=== PATIENT | female | born 1935 | race Caucasian/White ===

== ENCOUNTER → 2020-12-30 13:43 | Outpatient (CLI) | payer MEDICARE, OTHER, SELFPAY ==
--- NOTE | ~2020-12-30 | MR_ITS ---
EXAMINATION: MR lumbar spine wo con DATE: 12/30/2020 14:42 INDICATION: Dorsalgia, unspecified. Low back pain and bilateral leg pain. TECHNIQUE: Magnetic resonance imaging (MRI) of the lumbar spine was performed without intravenous con trast. Sequences included sagittal T2-weighted FSE, sagittal T2-weighted FS FSE, sagittal T1-weighted FSE, and axial T2-weighted FSE. COMPARISON: None FINDINGS: Bone alignment is normal. Vertebral body heights and intervertebral disc heights are normal . The distal spinal cord signal intensity is normal. The conus medullaris is at T12-L1. The following disc levels are specifically discussed: L1-L2: The disc is bulging. There is mild bilateral facet joint osteoarthritis. There is mild left ne ural foraminal stenosis. There is mild central canal stenosis. L2-L3: The disc is mildly bulging. There is mild bilateral facet joint osteoarthritis. There is mild bilateral neural foraminal stenosis. There is no central canal stenosis. L3-L4: The disc is mildly bulging. There is moderate bilateral facet joint osteoarthritis. There is m ild bilateral neural foraminal stenosis. There is no central canal stenosis. L4-L5: The disc is bulging and has an annular fissure. There is severe bilateral facet joint osteoart hritis. There is mild bilateral neural foraminal stenosis. There is mild central canal stenosis. L5-S1: The disc is bulging. There is severe bilateral facet joint osteoarthritis. There is mild bilat eral neural foraminal stenosis. There is mild central canal stenosis. IMPRESSION: 1. Mild lumbar spondylosis. Reviewed, dictated and finalized at location A. IMPRESSION: 1. Mild lumbar spondylosis.
== END ==
PROVIDERS: PCP Internal Medicine; Visit Provider Nurse Practitioner Family
DX: M47.817 Spondylosis without myelopathy or radiculopathy, lumbosacral region (principal); M48.07 Spinal stenosis, lumbosacral region
CPT/HCPCS: 72148

== ENCOUNTER 2021-09-09 13:38 | Outpatient (CLI) | payer MEDICARE, OTHER, SELFPAY ==
--- NOTE | ~2021-09-09 | US_ITS ---
EXAMINATION: US art doppler w press LE BI DATE: 09/09/2021 15:19 INDICATION: Peripheral vascular disease TECHNIQUE: Segmental pressures and plethysmographic and Doppler waveforms of the brachial and lower e xtremity arteries were obtained. COMPARISON: None. FINDINGS: Right and left brachial artery pressures of 175 mm Hg and 138 mm Hg, respectively, are discordant (no rmal difference <= 30 mmHg). The right and left high-thigh pressure indices are unable to be obtained due to inability to occlude the vessels on either the left or right (normal > 1.2). The right ankle-brachial index (FELIPA) is 0.41 (normal >= 0.9-1). The right great toe-brachial index (T BI) is 0.14 (normal >= 0.6-0.8). No dopplerable pulse in the right dorsalis pedis artery. The right l ower extremity segmental pressure gradients are increased between the right mwzbi-cuk-nifx popliteal artery and the contralateral left ggzwt-vbb-bvaz popliteal artery (normal gradients <= 20-30 mmHg bet ween adjacent levels on the same leg or the same levels on the two legs). Arterial waveforms are biph asic with brisk systolic upstrokes at the remaining arteries of the right lower limb. The left FELIPA is 0.38. The left TBI is 0.14. The left lower extremity segmental pressure gradients are increased between the left above and avdju-pkx-mwgi popliteal arteries. Arterial waveforms are bipha sic throughout the arteries of the left lower limb with borderline delayed upstrokes at the left popl iteal and posterior tibial arteries. IMPRESSION: 1. 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 2. Discordant brachial artery pressures which could be due to either hemodynamically significant sten osis proximal to the left brachial artery or vessel wall calcification with artifactual increased pre ssures in the right brachial artery. Could consider CT angiogram of great vessels arising from the ao rtic arch. Reviewed, dictated and finalized at location A. IMPRESSION: 1. 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 2. Discordant brachial artery pressures which could be due to either hemodynami zoie significant stenosis proximal to the left brachial artery or vessel wall calcification with artifactual increased pressures in the right brachial artery . Could consider CT angiogram of great vessels arising from the aortic arch.
== END 2021-09-09 13:39 | disposition home or self-care (01) ==
LOC: ANHIMG 13:44
PROVIDERS: PCP Internal Medicine; Visit Provider Physician Assistant
DX: I73.9 Peripheral vascular disease, unspecified (principal)
CPT/HCPCS: 93923

== ENCOUNTER 2021-09-19 11:38 | Emergency (ER) | payer OTHER, MEDICARE, SELFPAY ==
--- NOTE | ~2021-09-19 | XR_ITS ---
EXAMINATION: XR chest 1V portable DATE: 09/19/2021 12:32 INDICATION: Left chest pain. TECHNIQUE: A single frontal view of the chest was obtained. COMPARISON: Chest 2 views 04/30/2017 FINDINGS: Calcified right lung nodules are consistent with old granulomatous disease. No pleural effu chuck or pneumothorax. The heart size is normal. IMPRESSION: 1. No acute cardiopulmonary disease. Reviewed, dictated and finalized at location A.
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
[2021-09-19 11:45] VITALS: BP 168/65; PULSE 104; RESP 20; TEMP 36.6; O2SAT 100
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
[2021-09-19 13:35] LABS: Basophils Percent Auto 0.4 % (0.2-1.2); Eosinophils Percent Auto 0.7 % (0-4.4); Hematocrit 28.9 % (37.0-47.0); Hemoglobin 9.8 g/dL (12.0-15.0); Immature Granulocyte Absolute 0.03 K/mm3 (0.00-0.031); Immature Granulocyte Percent A 0.7 % (0-0.5); Lymphocytes Absolute Auto 1.76 K/mm3 (0.9-3.2); Lymphocytes Percent Auto 38.4 % (18.3-44.2); Mean Corpuscular HGB Conc 33.9 g/dl (32-36); Mean Corpuscular Hemoglobin 43.4 pg (26-34); Mean Corpuscular Volume 127.9 fl (80-100); Mean Platelet Volume 10.6 fl (7.4-10.4); Monocytes Absolute Auto 0.4 K/mm3 (0.1-0.6); Monocytes Percent Auto 7.9 % (2.6-8.5); Neutrophils Absolute Auto 2.4 K/mm3 (1.3-6.7); Neutrophils Percent Auto 51.9 % (45.5-73.1); Platelet Count Result 203 k/mm3 (150-375); Red Blood Count 2.26 M/mm3 (4.2-5.4); Red Cell Distribution Width 20.6 % (11.5-14.5); White Blood Count 4.6 K/mm3 (4.5-10.0)
[2021-09-19 13:39] LABS: Alanine Aminotransferase 18 U/L (6-35); Albumin Level 4.7 g/dL (3.5-5.1); Alkaline Phosphatase 60 U/L (38-126); Anion Gap 8 mmol/L (8-16); Aspartate Amino Transferase 26 U/L (14-36); Bilirubin,Total 0.8 mg/dL (0.2-1.3); Blood Urea Nitrogen 18 mg/dL (7-17); Calcium 8.6 mg/dL (8.4-10.2); Carbon Dioxide 29 mmol/L (22-30); Chloride 100 mmol/L (98-107); Estimated CRCL calculation 32 ml/min; Estimated Glomerular Filt Rate 39; Glucose 110 mg/dL (65-110); Potassium 3.9 mmol/L (3.4-5.0); Sodium 137 mmol/L (137-145)
[2021-09-19 13:40] LABS: INR 1.2; Prothrombin Time 14.5 Seconds (11.1-14.7)
[2021-09-19 15:14] VITALS: BP 114/63; PULSE 94; RESP 16; TEMP 36.4; O2SAT 100
== END 2021-09-19 15:19 | disposition home or self-care (01) ==
PROVIDERS: Emergency Provider Emergency Medicine; PCP Internal Medicine
DX: S22.32XA Fracture of one rib, left side, initial encounter for closed fracture (principal); S20.212A Contusion of left front wall of thorax, initial encounter; E78.00 Pure hypercholesterolemia, unspecified; Z87.891 Personal history of nicotine dependence; V49.50XA Passenger injured in collision with unspecified motor vehicles in traffic accident, initial encounter
CPT/HCPCS: 36415; 71045; 71260; 74177; 80053; 85025; 85610; 85730; 99284; Q9967

== ENCOUNTER 2022-09-08 14:23 | Outpatient (CLI) | payer MEDICARE, OTHER, SELFPAY ==
--- NOTE | 2022-09-08 14:36 | ECG_ITS ---
Measurements Intervals [place] Rate: 82 P: 40 W[place]: 168 QRS: 31 QRSD: 65 T: 54 QT: 379 QTc: 445 Interpretive Statements SINUS RHYTHM WITH FREQUENT VENTRICULAR PREMATURE COMPLEXES ABNORMAL RHYTHM ECG NO PREVIOUS ECG AVAILABLE FOR COMPARISON Electronically Signed On 09-08-2022 17:21:35 CDT by Margarito Fenton M.D.
== END 2022-09-08 14:24 | disposition home or self-care (01) ==
LOC: ANHCARD 14:30
PROVIDERS: PCP Internal Medicine; Visit Provider Physician Assistant
DX: I49.9 Cardiac arrhythmia, unspecified (principal); R94.31 Abnormal electrocardiogram [ECG] [EKG]
CPT/HCPCS: 93005

== ENCOUNTER 2023-02-20 09:41 | Day surgery (SDC) | payer MEDICARE, OTHER, SELFPAY ==
--- NOTE | ~2023-02-20 | XR_ITS ---
EXAMINATION: XR fluoroscopy no charge INDICATION: Bilateral L3, L4, and L5 medial block TECHNIQUE: 20 intraoperative fluoroscopic images are submitted for review. Total fluoroscopic time wa s 22.8 seconds. COMPARISON: None available FINDINGS: Fluoroscopic images demonstrate bilateral injection of L3, L4, and L5 neuroforamina. Please refer to procedure note for full details. IMPRESSION: 1. Please refer to procedure note for full details. Reviewed, dictated and finalized at location L. KET FOLDER
--- NOTE | 2023-02-20 05:49 | WPDHPUPDATE1 ---
History and Physical Update Update Date/Time: 02/20/23 05:49 History and Physical has been reviewed, including an updated exam of the patient. There are NO changes in the patient's condition. Risks, benefits, and alternatives have been discussed and questions answered. Patient agrees to proceed with procedure.
[2023-02-20 10:25] VITALS: BP 150/82; PULSE 90; RESP 20; TEMP 36.8; O2SAT 100
[2023-02-20 11:35] VITALS: BP 236/112; PULSE 66; RESP 14; O2SAT 99
[2023-02-20 11:40] VITALS: PULSE 75; RESP 10; O2SAT 99
[2023-02-20] MEDS: LIDOCAINE HCL 1% PF INJ 5 ML VIAL 3 ML XX (11:40)
[2023-02-20] MEDS: BUPivacaine HCL 0.5% 10 ML AMP INFILTRATE (11:43)
--- NOTE | 2023-02-20 11:45 | W.PM.PROC2 ---
Procedure Note - Detailed Date of Procedure 02/20/23 Pre-op Diagnosis Lumbosacral Spondylosis, chronic low back pain Post-op Diagnosis Same Procedure Performed bilateral L3, L4, L5 medial branch/dorsal ramus blocks addressing the bilateral L4-5, L5-S1 facet joints under fluoroscopic guidance with contrast control. Surgeon Viktor Dover MD Anesthesia Local Description of Procedure INFORMED CONSENT: Risks, benefits and alternatives to the procedure were discussed in detail with the patient who expressed explicit understanding and consent to proceed. Patient was informed verbally and in written form regarding the risks associated with the procedure including the low risk of serious infection, bleeding/bruising, allergic reaction, nerve or organ injury, paralysis, procedural site pain or discomfort, worsening pain and/or mobility, failure to treat and/or disfigurement. The patient expressed explicit understanding and consent to proceed. All materials required for the procedure were available prior to procedure start. Site and side were marked prior to procedure and confirmed in the presence of the patient. PROCEDURE IN DETAIL: The patient was brought to the procedural suite and placed in the prone position. Patient was made comfortable with use of pillows under the head/chest, hips and ankles. Skin overlying the injection site on the affected side(s) was prepared broadly with ChloraPrep applicator and draped in a sterile manner. Aseptic technique was used throughout. The endplates of the vertebral bodies at the site(s) of interest were aligned in the AP view. Ipsilateral oblique angulation was utilized to optimize visualization of the intersection between the superior articulating process and transverse process at each target site. Local anesthesia was established by infiltration with approximately 5 mL of 1% lidocaine via a 1-1/2 inch 27-gauge needle. A 25-gauge 5.0 inch Quincke spinal needle was advanced until the needle tip contacted periosteum at the target site, right L3. Lateral view was utilized to confirm the appropriate placement of the needle tip just anterior to the facet line and superior to the pedicle. In the Lateral view, 0.25 mL of Omnipaque 300 contrast medium was injected after negative aspiration for CSF, blood or other bodily fluid, showing appropriate extra-articular spread of contrast without evidence of intravascular, foraminal or intrathecal placement. A 0.5 mL solution of 0.5% PF bupivacaine was injected after negative repeat aspiration. Appropriate spread of the injectate was confirmed with washout of previously injected contrast. No parasthesias were elicited. Needle was removed completely intact without difficulty. [The same exact procedure was repeated for all remaining levels on the ipsilateral side, right L4, L5 medial branches/dorsal ramus, modified as necessary to accommodate for the new target location with identical findings and results and no evidence of complication.] [The same exact procedure was repeated for all remaining levels on the contralateral side, left L3, L4, L5 medial branches/dorsal ramus, modified as necessary to accommodate for the new target location with identical findings and results and no evidence of complication.] Images were saved and documented in the patient chart. Patient's skin was cleaned and sterile bandage applied. The patient tolerated the procedure well. The patient was transported to the recovery area in stable condition where they were observed for an appropriate amount of time prior to discharge, without evidence of complication. Patient was instructed on the appropriate completion of a pain diary over the next 12-24 hours. The patient was instructed to avoid excessive activity for the next 48 hours, including climbing and frequent use of stairs. Showers only for 48 hours. They were instructed not to drive or operate heavy machinery for 24 hours. They are to monitor for severe headaches, fe
[2023-02-20 12:15] VITALS: BP 167/82; PULSE 77; RESP 15; O2SAT 99
== END 2023-02-20 12:07 | disposition home or self-care (01) ==
LOC: ASC 09:44
PROVIDERS: PCP Internal Medicine; Visit Provider Anesthesiology Pain Medicine
PROC: (CPT 64493; principal; 2023-02-20 11:00)
DX: M47.817 Spondylosis without myelopathy or radiculopathy, lumbosacral region (principal); M54.59 Other low back pain
CPT/HCPCS: 64493 ×2; 99199

== ENCOUNTER 2023-04-03 08:45 | Day surgery (SDC) | payer MEDICARE, OTHER, SELFPAY ==
[2023-03-16 13:05] VITALS: BMI 32.3
--- NOTE | ~2023-04-03 | XR_ITS ---
EXAMINATION: XR fluoroscopy no charge DATE: 04/03/2023 11:01 INDICATION: Lumbar spondylosis. Dorsalgia. TECHNIQUE: 11 intraoperative fluoroscopic views of the lumbar spine were obtained. I was not present. Fluoroscopy exposure time was 15 seconds. COMPARISON: CT abdomen and pelvis 09/19/2021 FINDINGS: [place] and contrast are seen at the bilateral L3, L4, and L5 medial branch nerves. IMPRESSION: 1. Bilateral L3, L4, and L5 medial branch nerve blocks. Reviewed, dictated and finalized at location E. [facility] [employer]
[2023-04-03 09:10] VITALS: BP 133/70; PULSE 86; RESP 20; TEMP 36.2; O2SAT 99
--- NOTE | 2023-04-03 09:24 | PM.HPGS ---
History of Present Illness History of Present Illness Consent: Risks, benefits, and alternatives have been discussed and questions answered. Patient agrees to proceed with procedure. Chief complaint: Lumbar Sponydlosis, Dorsalgia Narrative: Kayla Tierney is a 88 year old female with chronic, recalcitrant and disabling bilateral lumbosacral back pain secondary to degenerative spondylosis with failure to respond to aggressive conservative measures including PT, oral and topical analgesics, opioid and nonopioid analgesics, rest, time and activity/behavioral modification over the past 1-2 years who presents for diagnostic/prognostic medial branch blocks (#2) under fluoroscopic guidance and with contrast control. patient had excellent And concordant response to a initial set of bilateral lumbar medial branch/ dorsal ramus blocks with bupivacaine in the past 1-2 months. Review of Systems Review of Systems: Patient denies any new infectious, allergic, cardiopulmonary, neurologic or constitutional symptoms or changes in activity tolerance or exercise capacity including new or progressive SOB/FORDE, peripheral edema, productive cough, dysuria, nausea/vomiting, diarrhea, weight change, fevers/chills/night sweats, new or progressive neurologic deficit, cognitive or mood changes since last seen, except as documented in the HPI. All systems reviewed & are unremarkable except as noted in HPI and below PMFSH Past Medical History Medical History Hypercholesterolemia Family History Family History Sibling Family history of elevated blood lipids Carcinoma of colon Patient's sister is Social History Social History Smoking status: Former smoker Second hand tobacco smoke exposure: No Smoking end date: 03/12/04 Additional smoking assessment comments: quit 30 years ago Alcohol intake: never Substance use: unknown Substance use type: does not use Lack of Transportation: No Lack of Food: Never True Current Housing: I Have Housing Concerned About Future Housing: No Difficulty Paying Gas/Electric Bills: No Difficulty Paying for Meds: No Currently Unemployed: YES Education: High School Diploma/GED Difficulty w/ Childcare or Family Care: No Living arrangements: with family Spiritual care concerns: No Meds Home Medications and Allergies Home Medications Medication Instructions Recorded Confirmed Type hydroxyurea 500 mg capsule 1,000 mg PO DAILY #216 caps 06/28/20 03/16/23 Rx levothyroxine 88 mcg tablet See Rx Instructions .Route 05/22/22 03/16/23 Rx .COMPLEX #90 tabs rosuvastatin 10 mg tablet See Rx Instructions .Route 07/10/22 03/16/23 Rx .COMPLEX #90 tabs sertraline 100 mg tablet See Rx Instructions .Route 08/14/22 03/16/23 Rx .COMPLEX #90 tabs aspirin 81 mg tablet,delayed 81 mg PO DAILY 09/25/22 03/16/23 History release (Adult Aspirin Regimen) clopidogrel 75 mg tablet (Plavix) 75 mg PO DAILY 09/25/22 03/16/23 History Allergies Allergy/AdvReac Type Severity Reaction Status Date / Time No Known Allergies Allergy Verified 04/03/23 09:26 Exam Narrative: The patient's physical exam is essentially unchanged from prior examination on 02/26/2023. Specifically, patient demonstrates normal lung capacity, tidal volume and respiratory rate without wheezes, crackles, rales or rubs. Heart rate and rhythm are regular without murmurs, gallops or rubs. No JVD. Pulses 2+ globally without increasing peripheral edema. AAOx3, NC/AT without acute distress or altered consciousness. Speech, cognition, mood and judgment at baseline and within normal limits. Assessment and Plan Assessment and plan (1) Lumbosacral spondylosis: Code(s): M47.817 - Spondylosis without myelopathy or radiculopathy, lumbos
--- NOTE | 2023-04-03 09:28 | WPDHPUPDATE1 ---
History and Physical Update Update Date/Time: 04/03/23 09:28 History and Physical has been reviewed, including an updated exam of the patient. There are NO changes in the patient's condition. Risks, benefits, and alternatives have been discussed and questions answered. Patient agrees to proceed with procedure.
[2023-04-03 10:00] VITALS: BP 164/79; PULSE 80; RESP 17; O2SAT 98
[2023-04-03 10:10] VITALS: BP 171/83; PULSE 75; RESP 16; O2SAT 99
[2023-04-03] MEDS: LIDOCAINE HCL 1% PF INJ 5 ML VIAL XX (10:16)
[2023-04-03] MEDS: LIDOCAINE HCL 2% PF INJ 5 ML VIAL INFILTRATE (10:17)
--- NOTE | 2023-04-03 10:17 | W.PM.PROC2 ---
Procedure Note - Detailed Date of Procedure 04/03/23 Pre-op Diagnosis Lumbar Sponydlosis, Dorsalgia Post-op Diagnosis Same Procedure Performed bilateral L3, L4, L5 medial branch/dorsal ramus nerve blocks (#2) addressing the bilateral L4-5, L5-S1 facet joints under fluoroscopic guidance and contrast control. Surgeon Viktor Dover MD Anesthesia Local Description of Procedure INFORMED CONSENT: Risks, benefits and alternatives to the procedure were discussed in detail with the patient who expressed explicit understanding and consent to proceed. Patient was informed verbally and in written form regarding the risks associated with the procedure including the low risk of serious infection, bleeding/bruising, allergic reaction, nerve or organ injury, paralysis, procedural site pain or discomfort, worsening pain and/or mobility, failure to treat and/or disfigurement. The patient expressed explicit understanding and consent to proceed. All materials required for the procedure were available prior to procedure start. Site and side were marked prior to procedure and confirmed in the presence of the patient. PROCEDURE IN DETAIL: The patient was brought to the procedural suite and placed in the prone position. Patient was made comfortable with use of pillows under the head/chest, hips and ankles. Skin overlying the injection site on the affected side(s) was prepared broadly with ChloraPrep applicator and draped in a sterile manner. Aseptic technique was used throughout. The endplates of the vertebral bodies at the site(s) of interest were aligned in the AP view. Ipsilateral oblique angulation was utilized to optimize visualization of the intersection between the superior articulating process and transverse process at each target site. Local anesthesia was established by infiltration with approximately 5 mL of 1% lidocaine via a 1-1/2 inch 27-gauge needle. A 25-gauge 3.5 inch Quincke spinal needle was advanced until the needle tip contacted periosteum at the target site, right L3. Lateral view was utilized to confirm the appropriate placement of the needle tip just anterior to the facet line and superior to the pedicle. In the Lateral view, 0.25 mL of Omnipaque 300 contrast medium was injected after negative aspiration for CSF, blood or other bodily fluid, showing appropriate extra-articular spread of contrast without evidence of intravascular, foraminal or intrathecal placement. A 0.5 mL solution of 2.0% preservative-free lidocaine was injected after negative repeat aspiration. Appropriate spread of the injectate was confirmed with washout of previously injected contrast. No parasthesias were elicited. Needle was removed completely intact without difficulty. The same exact procedure was repeated for all remaining levels on the ipsilateral side, right L4, L5 medial branches/dorsal ramus, modified as necessary to accommodate for the new target location with identical findings and results and no evidence of complication. The same exact procedure was repeated for all remaining levels on the contralateral side, left L3, L4, L5 medial branches/dorsal ramus, modified as necessary to accommodate for the new target location with identical findings and results and no evidence of complication. Images were saved and documented in the patient chart. Patient's skin was cleaned and sterile bandage applied. The patient tolerated the procedure well. The patient was transported to the recovery area in stable condition where they were observed for an appropriate amount of time prior to discharge, without evidence of complication. Patient was instructed on the appropriate completion of a pain diary over the next 12-24 hours. The patient was instructed to avoid excessive activity for the next 48 hours, including climbing and frequent use of stairs. Showers only for 48 hours. They were instructed not to drive or operate heavy machinery for 24 hours. They are to monitor for severe headaches, f
[2023-04-03 10:22] VITALS: BP 149/74; PULSE 80; RESP 18; O2SAT 100
== END 2023-04-03 11:00 | disposition home or self-care (01) ==
PROVIDERS: PCP Internal Medicine; Visit Provider Anesthesiology Pain Medicine
PROC: (CPT 64493; principal; 2023-04-03 10:00)
DX: M47.816 Spondylosis without myelopathy or radiculopathy, lumbar region (principal); M54.9 Dorsalgia, unspecified
CPT/HCPCS: 64493 ×2; 99199

== ENCOUNTER 2024-12-03 17:35 | Inpatient (IN) | payer MEDICARE, OTHER, SELFPAY ==
[2024-12-03] VITALS (10 sets, daily range): BP systolic 112–149; BP diastolic 65–89; PULSE 78–148; RESP 16–34; TEMP 36.6–37; O2SAT 16–98; BMI 30.8; BMI 30.9
--- NOTE | ~2024-12-03 | XR_ITS ---
Examination: XR chest 1V portable Clinical History: sob Comparison: 09/19/2021 Technique: Portable AP Findings: Heart size normal. Lungs clear. Calcified granuloma right upper lobe. No acute bony abnormality. IMPRESSION: 1. No acute cardiopulmonary findings given portable technique. Reviewed, dictated and finalized at location R.
--- NOTE | ~2024-12-03 | US_ITS ---
BILATERAL LOWER EXTREMITY VENOUS DUPLEX Clinical History: Leg pain and swelling L>R . Comparison: None. Technique: Grayscale, color, duplex/spectral Doppler sonography bilateral lower extremities. Findings: Bilateral common femoral, femoral, popliteal, and calf veins compressible and color Doppler patent. Normal augmentation with distal compression. No internal echoes. IMPRESSION: 1. No DVT either leg. Reviewed, dictated and finalized at location R. IMPRESSION: 1. No DVT either leg.
--- NOTE | ~2024-12-03 | US_ITS ---
US right upper quadrant INDICATION: Elevated liver function tests PROCEDURE: Realtime right upper abdominal ultrasound. COMPARISON: No prior studies for comparison. FINDINGS: The pancreas is normal without focal mass or pancreatic ductal dilation. Liver echotexture is increased, compatible with fatty infiltration. There is normal directional flow in the portal vein. There are gallstones. No gallbladder wall thickening or pericholecystic fluid. Right renal echotexture is unremarkable. Common bile duct measures mm. No sonographic [place]'s sign. IMPRESSION: 1: Cholelithiasis. 2: Fatty infiltration of the liver. Reviewed, dictated and finalized at location O.
--- NOTE | ~2024-12-03 | CT_ITS ---
EXAMINATION: CTA chest PE protocol DATE: 12/03/2024 19:36 CDT INDICATION: New onset atrial fibrillation. Peripheral arterial disease with stents. Thrombocytosis history. TECHNIQUE: Computed tomographic angiography (CTA) of the chest was performed with 100 mL Omnipaque-350 intravenous contrast. The dose-length product was 329.83 mGy-cm. Maximum intensity projection 3D-reconstructions of the aorta and other arteries were constructed by the technologist on a separate workstation. COMPARISON: CT dated 09/19/2021. FINDINGS: There is bilateral pulmonary embolism involving the right upper and lower lobe pulmonary arteries as well as the left upper and lower pulmonary arteries. Moderate thrombus burden. There is atherosclerosis of the aorta. No endobronchial lesions. There is atelectasis. No evidence for aortic aneurysm or dissection. Dependent atelectasis. No focal consolidation to suggest pneumonia. No pneumothorax. Mild thoracic spondylosis. No acute osseous abnormality. IMPRESSION: 1. Bilateral pulmonary embolism, moderate thrombus burden. Reviewed, dictated and finalized at location O.
--- NOTE | 2024-12-03 17:49 | ECG_ITS ---
Test Date: 2024-12-03 17:52:49 Measurements Intervals [place] Rate: 138 P: 0 ME: 0 QRS: 21 QRSD: 82 T: 64 QT: 279 QTc: 423 Interpretive Statements ATRIAL FIBRILLATION WITH RAPID VENTRICULAR RESPONSE NONSPECIFIC ST & T-WAVE ABNORMALITY ABNORMAL RHYTHM ECG No previous ECG available for comparison Electronically Signed On 12-04-2024 06:39:52 CDT by Thompson Stevens M.D.
[2024-12-03 18:10] LABS: Hematocrit 34.0 % (37.0-47.0); Hemoglobin 11.1 g/dL (12.0-15.0); Immature Granulocyte Percent A 0.7 % (0-0.5); Lymphocytes Absolute Auto 1.17 K/mm3 (0.9-3.2); Mean Corpuscular HGB Conc 32.6 g/dl (32-36); Mean Corpuscular Hemoglobin 39.5 pg (26-34); Mean Corpuscular Volume 121.0 fl (80-100); Nucleated Red Blood Cells Absolute Auto 0.000 K/mm3 (0.0-0.012); Nucleated Red Blood Cells Perc 0.0 % (0.0-0.2); Platelet Count Result 295 k/mm3 (150-375); Red Blood Count 2.81 M/mm3 (4.2-5.4); White Blood Count 10.7 K/mm3 (4.5-10.0)
[2024-12-03] MEDS: SODIUM CHLORIDE 0.9% IV 1,000 ML 150 ML IV CONT (18:16)
[2024-12-03] MEDS: METOPROLOL TARTRATE INJ 5 MG/5 ML VIAL IV PUSH (18:16)
[2024-12-03 18:24] LABS: Alanine Aminotransferase 66 U/L (6-35); Albumin Level 3.7 g/dL (3.5-5.1); Alkaline Phosphatase 129 U/L (38-126); Anion Gap 11 mmol/L (4-12); Aspartate Amino Transferase 101 U/L (14-36); Bilirubin,Total 1.6 mg/dL (0.2-1.3); Blood Urea Nitrogen 34 mg/dL (7-17); Calcium 8.5 mg/dL (8.4-10.2); Carbon Dioxide 20 mmol/L (22-30); Chloride 99 mmol/L (98-107); Estimated CRCL calculation 23 ml/min; Estimated Glomerular Filt Rate 29; Glucose 134 mg/dL (65-110); Potassium 4.3 mmol/L (3.4-5.0); Sodium 130 mmol/L (137-145); Total Protein 7.1 g/dL (6.3-8.2)
[2024-12-03 18:26] LABS: Anisocytosis 1+; Macrocytosis 1+ (NORMAL); Ovalocytes 1+; Schistocytes None Seen
[2024-12-03 18:34] LABS: NT Pro B Type Natriuretic Pept 4790 pg/mL (19.9-100); Troponin I < 0.012 ng/mL (0.000-0.034)
--- NOTE | 2024-12-03 19:19 | PC.NURSE ---
ERP in room evaluating patient
--- NOTE | 2024-12-03 19:36 | ED.SOB ---
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 no history of DVT or PE. Patient presents to the emergency department with complaints of bilateral lower extremity pain left worse than right and left-sided leg swelling. She states that she has also been short of breath lately. On arrival to the emergency department she was found to be AFib RVR with heart rates elevated in the 140s. Patient placed into room 7 for evaluation. Previous provider did see the patient and administered 5 mg of IV Lopressor for rate control. Related Data Home Medications ?Medication ?Instructions ?Recorded ?Confirmed ?Last Taken ?Type aspirin 81 mg tablet,delayed 81 mg PO DAILY 09/25/22 12/03/24 12/02/24 History release (Adult Aspirin Regimen) clopidogrel 75 mg tablet (Plavix) 75 mg PO DAILY 09/25/22 12/03/24 12/02/24 History cyanocobalamin (vitamin B-12) 500 500 mcg PO DAILY 12/03/24 12/03/24 12/02/24 History mcg tablet folic acid 1 mg tablet 1 mg PO DAILY 12/03/24 12/03/24 12/02/24 History Allergies Allergy/AdvReac Type Severity Reaction Status Date / Time No Known Allergies Allergy Verified 12/03/24 17:42 Review of Systems Review of Systems: As reviewed above in [facility] Past Medical History Medical History (Updated 12/04/24 @ 05:28 by Cruz Milton MD) Spinal stenosis, lumbar region without neurogenic claudication CKD (chronic kidney disease) stage 3, GFR 30-59 ml/min B12 deficiency Essential thrombocytosis Vitamin D deficiency, unspecified Polycythemia vera Raudel 2 mutation Hyperglycemia Hypercholesterolemia Surgical History Surgical History (Updated 12/03/24 @ 22:00 by Zuleima Dhillon DO) History of laparoscopic appendectomy (~2018) Peripheral arterial disease with history of revascularization Family History Family History (Updated 12/03/24 @ 22:19 by Zuleima Dhillon DO) Sibling Family history of elevated blood lipids Carcinoma of colon Father Lung cancer Mother Breast cancer Social History Social History (Updated 12/04/24 @ 01:00 by Zuleima Dhillon DO) Social History: The patient reports that she lives with her of 70 years. She used to smoke a pack a per day for at least 30 years but quit smoking in 2004 according to nursing documentation. She denies history of alcohol use. She used to work in retail. She raised 2 daughters and 1 son. Code status: Full code Healthcare power of civil attorney: Lynne Estestis Smoking packs per day: 1 Smoking cigarettes per day: 20.0 Years smoked: 32 Smoking pack-years: 32.00 Smoking status: Former smoker Tobacco type: cigarettes Second hand tobacco smoke exposure: No Smoking end date: 03/12/04 Additional smoking assessment comments: quit 30 years ago Alcohol intake: never Substance use: never Substance use type: does not use Lack of Transportation: No Lack of Food: Never True Current Housing: I Have Housing Concerned About Future Housing: No Difficulty Paying Gas/Electric Bills: No Difficulty Paying for Meds: No Currently Unemployed: YES Education: High School Diploma/GED Difficulty w/ Childcare or Family Care: No Living arrangements: with family Spiritual care concerns: No Exam Narrative: GENERAL: [Well-appearing, well-nourished, and in no acute distress.] HEAD: [Normocephalic, atraumatic.] EYES: [PERRLA and EOMI.] ENT: Nares clear, no rhinorrhea or epistaxis. Mucous membranes moist. NECK: Supple. CHEST: [Clear to auscultation. No respiratory distress.] HEART: irregular rate, tachycardic, irregular rhythm. No murmur heard. [Normal peripheral pulses.] ABDOMEN: [Soft, nondistended], [nontender], [No rigidity or guarding] EXTREMITIES: Normal range of motion, 1+ pitting edema bilaterally left-sided leg swelling worse than right side. Warm extremities without any discoloration or any ulcerations noted. No signs cellulitis. No pain with calf compression. SKIN: Warm, dry, no rash. NEURO: [No focal deficits]. Alert and oriented [x3.] PSYCH: [Normal mood and affect.] Course Vital Signs Vital signs: Vital Signs Temperature 36.8 C 12/03/24 17:39 Pulse Rate 78 12/03/24 17:39 Respiratory Rate 16 12/03/24 17:39 Blood Pressure 112/65 12/03/24 17:39 Pulse Oximetry 16 L 12/03/24 17:39 Temperature 36.8 C 12/04/24 03:57 Pulse Rate 96 12/04/24 04:00 Respiratory Rate 18 12/04/24 03:57 Blood Pressure 148/76 H 12/04/24 03:57 Pulse Oximetry 99 12/04/24 03:57 Oxygen Delivery Room Air 12/03/24 17:49 MDM - SOB/Dyspnea MDM Narrative Medical decision making narrative: 89-year-old female with a past medical history including peripheral arterial disease status post bilateral stents in her legs, 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 no history of DVT or PE. Patient presents to the emergency department with complaints of bilateral lower extremity pain left worse than right and left-sided leg swelling. She states that she has also been short of breath lately. On arrival to the emergency department she was found to be AFib RVR with heart rates elevated in the 140s. Patient placed into room 7 for evaluation. Previous provider did see the patient and administered 5 mg of IV Lopressor for rate control. patient's physical examination shows a regular rate and rhythm, tachycardic pulse in the 140s, normal blood pressure, no tachycardia, tachypnea or fever. Extremity exam shows normal range of motion, 1+ pitting edema bilaterally left-sided leg swelling worse than right side. Warm extremities without any discoloration or any ulcerations noted. No signs cellulitis. No pain with calf compression. patient is what appears to be in new onset AFib RVR with unknown chronicity or duration. Patient states that she does not remember exactly when she started having symptoms. She has no pain at this time and states that her leg pain is just worse with walking classical for her claudication symptoms that led to her stents. No overt red flags on her extremity examination for arterial occlusion but she does have calf asymmetry raising suspicion for DVT and the new onset AFib RVR could be potential thromboembolic disease such as PE, fluid imbalances, new onset heart failure with the pitting edema, electrolyte imbalances. workup underway including CT angiography of the chest, Doppler DVTs of the bilateral lower extremities, electrolyte panel, multiple troponins, EKG and chest x-ray. Patient given 1 time metoprolol with improvement in heart rate down to the 110s. Hemodynamically remained stable with blood pressures in the 110s. patient comfortable without any shortness of breath or pain at this time. EKG shows no ischemic evidence but does show AFib RVR. Patient's Doppler DVT studies were negative but bilateral PEs noted on CT angiography with moderate clot burden. Patient hemodynamically stable at this time, saturating 98% on room air. Started on heparin with bolus. Labs showed negative troponin, dull troponin pending. BNP elevated and will require echocardiogram. Awaiting discussion with hospitalist for admission at this time. Discussed with the hospitalist currently being covered by the midlevel provider Johanna who accepted the patient to an IMU bed. Family updated on plan and patient has a for admission at this time. Medical Records Attestation: I reviewed the patient's medical records. Lab Data Attestation: I reviewed the patient's lab results. 12/04/24 02:51 12/03/24 18:04 Labs: Lab Results 12/03/24 12/03/24 Range/Units 18:04 19:53 WBC 10.7 H 9.0 (4.5-10.0) K/mm3 RBC 2.81 L 2.55 L (4.2-5.4) M/mm3 Hgb 11.1 L 10.0 L (12.0-15.0) g/dL Hct 34.0 L 30.9 L (37.0-47.0) % MCV 121.0 H 121.2 H (80-100) fl MCH 39.5 H 39.2 H (26-34) pg MCHC 32.6 32.4 (32-36) g/dl RDW 14.6 H 14.6 H (11.5-14.5) % Plt Count 295 225 (150-375) k/mm3 MPV 10.8 H 10.7 H (7.4-10.4) fl Immature Gran % (Auto) 0.7 H 0.9 H (0-0.5) % Neut % (Auto) 78.0 H 77.8 H (45.5-73.1) % Lymph % (Auto) 11.0 L 10.5 L (18.3-44.2) % [place] % (Auto) 8.9 H 9.2 H (2.6-8.5) % Eos % (Auto) 0.9 1.2 (0-4.4) % Baso % (Auto) 0.5 0.4 (0.2-1.2) % Lymph # (Auto) 1.17 0.95 (0.9-3.2) K/mm3 [place] # (Auto) 1.0 H 0.8 H (0.1-0.6) K/mm3 Eos # (Auto) 0.1 0.1 (0-0.3) K/mm3 Baso # (Auto) 0.1 0.0 (0.0-0.1) K/mm3 Abs Immat Gran (auto) 0.07 H 0.08 H (0.00-0.031) K/mm3 Absolute Neuts (auto) 8.3 H 7.0 H (1.3-6.7) K/mm3 Absolute Nucleated RBC 0.000 0.000 (0.0-0.012) K/mm3 Band Neutrophils % Not Reportable Not Reportable Nucleated RBC % 0.0 0.0 (0.0-0.2) % Platelet Estimate Adequate Adequate (Adequate) Clumped Platelets Present Anisocytosis 1+ 1+ Macrocytosis 1+ 1+ (NORMAL) Ovalocytes 1+ Occasional Schistocytes None seen None seen PT 16.5 H (11.1-14.7) Seconds INR 1.3 APTT 40.7 H (22.3-36.8) Seconds Sodium 130 L (137-145) mmol/L Potassium 4.3 (3.4-5.0) mmol/L Chloride 99 (98-107) mmol/L Carbon Dioxide 20 L (22-30) mmol/L Anion Gap 11 (4-12) mmol/L BUN 34 H D (7-17) mg/dL Creatinine 1.67 H (0.7-1.0) mg/dL Estim Creat Clear Calc 23 ml/min Estimated GFR 29 L (59 - ) Glucose 134 H (65-110) mg/dL Calcium 8.5 (8.4-10.2) mg/dL Total Bilirubin 1.6 H (0.2-1.3) mg/dL AST 101 H (14-36) U/L ALT 66 H (6-35) U/L Alkaline Phosphatase 129 H (38-126) U/L Troponin I < 0.012 (0.000-0.034) ng/mL NT-Pro-B Natriuret Pep 4790 H (19.9-100) pg/mL Total Protein 7.1 (6.3-8.2) g/dL Albumin 3.7 (3.5-5.1) g/dL Imaging Data Attestation: I personally reviewed and interpreted this imaging study as follows: My impression: Impressions Chest X-Ray 12/03/24 18:13 IMPRESSION: 1. No acute cardiopulmonary findings given portable technique. Chest CTA 12/03/24 19:36 IMPRESSION: 1. Bilateral pulmonary embolism, moderate thrombus burden. Venous Doppler Study 12/03/24 19:56 IMPRESSION: 1. No DVT either leg. Critical Care Time Critical Care Time Critical Care Time: Yes Total Critical Care Time: 75 Discharge Plan Discharge Clinical Impression: Atrial fibrillation with rapid ventricular response, Bilateral pulmonary embolism, Leg pain Patient Disposition: Still a Patient Condition: Stable
[2024-12-03 19:58] LABS: Hematocrit 30.9 % (37.0-47.0); Hemoglobin 10.0 g/dL (12.0-15.0); Immature Granulocyte Percent A 0.9 % (0-0.5); Lymphocytes Absolute Auto 0.95 K/mm3 (0.9-3.2); Mean Corpuscular HGB Conc 32.4 g/dl (32-36); Mean Corpuscular Hemoglobin 39.2 pg (26-34); Mean Corpuscular Volume 121.2 fl (80-100); Nucleated Red Blood Cells Absolute Auto 0.000 K/mm3 (0.0-0.012); Nucleated Red Blood Cells Perc 0.0 % (0.0-0.2); Platelet Count Result 225 k/mm3 (150-375); Red Blood Count 2.55 M/mm3 (4.2-5.4); White Blood Count 9.0 K/mm3 (4.5-10.0)
[2024-12-03 20:19] LABS: Anisocytosis 1+; Macrocytosis 1+ (NORMAL)
[2024-12-03 20:20] LABS: Ovalocytes Occasional; Schistocytes None Seen
[2024-12-03 20:22] LABS: INR 1.3; Prothrombin Time 16.5 Seconds (11.1-14.7)
[2024-12-03 20:23] LABS: Partial Thromboplastin Time 40.7 Seconds (22.3-36.8)
[2024-12-03] MEDS: HEPARIN SOD/D5W 100 UNITS/ML 25,000 UNITS/250 ML BAG 13 UNITS IV CONT (20:23)
--- NOTE | 2024-12-03 21:00 | ECG_ITS ---
Test Date: 2024-12-03 21:07:04 Measurements Intervals [place] Rate: 122 P: 0 NV: 0 QRS: 18 QRSD: 81 T: 48 QT: 313 QTc: 446 Interpretive Statements ATRIAL FIBRILLATION WITH RAPID VENTRICULAR RESPONSE ABNORMAL RHYTHM ECG Compared to ECG 12/03/2024 17:52:49 T-wave abnormality no longer present Electronically Signed On 12-04-2024 06:38:37 CDT by Thompson Stevens M.D.
--- NOTE | 2024-12-03 21:45 | ADMGEN ---
This patient, Kayla Tierney, was admitted to IMU Room 213-01, via stretcher, with one tech, on a heparin drip going at 1300units/hr, and no issues. Patient/family oriented to hospital policies and general routines including ID bracelet, bed and alarms, visiting hours, pain management, procedures, bathroom and other care routines, personal items, smoking policy, room service/diet, and visiting hours. Information on how to activate the Rapid Response Team has been discussed. Patient/Family are encouraged to report perceived risks to care and to ask questions if they do not understand what they are told or what they should do.
--- NOTE | 2024-12-03 21:47 | P.HP_ITS ---
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 Escamilla), peripheral artery disease with lower extremity stents, carotid stenosis, essential hypertension and hypothyroidism who presented to the ER with leg pain. The patient is alert orient to person, place and somewhat alert to situation. She is not the best historian and was initially confused as to the month and year. Subsequently the majority of the information was obtained from ER physician report, review of past medical records with some assistance from the patient. The patient reported that she had stents only into the right leg and she thinks that now she needs stents in the left leg. She stated he came in because she has been having worsening left leg pain with marked left leg swelling. The patient states that the pain is been going on for several days. When she arrived to the ER she was noted to be in AFib RVR with heart rates in the 140s. On direct questioning she states that she has been short of breath ?for a while?. She states that she does not know exactly how long she has been short of breath. She has been more fatigued. She denied having any chest pain. She denies having any cough or congestion. She denies any urinary symptoms. She received 2 doses of IV Lopressor and 1 L of normal saline at 150 mL an hour with improvement in heart rate. She had a CTA of the chest which demonstrated bilateral pulmonary embolisms with moderate thrombus burden. She was started on heparin drip. Pharmacy staff just notified me that the patient received higher than ideal bolus of heparin 7000 units instead of the recommended 5500. He the patient has not had any evidence of acute bleeding. Review of Systems 2 Review of Systems: 12 systems were reviewed with pertinent positives and negatives per HPI. Except as documented in the HPI, all other systems were reviewed and are negative. [facility] Past Medical History Medical History (Updated 12/03/24 @ 22:08 by Zuleima Dhillon DO) Spinal stenosis, lumbar region without neurogenic claudication CKD (chronic kidney disease) stage 3, GFR 30-59 ml/min B12 deficiency Essential thrombocytosis Vitamin D deficiency, unspecified Polycythemia vera Jessie 2 mutation Hyperglycemia Hypercholesterolemia Surgical History Surgical History (Updated 12/03/24 @ 22:00 by Zuleima Dhillon DO) History of laparoscopic appendectomy (~2019) Peripheral arterial disease with history of revascularization Family History Family History (Updated 12/03/24 @ 22:19 by Zuleima Dhillon DO) Sibling Family history of elevated blood lipids Carcinoma of colon Father Lung cancer Mother Breast cancer Social History Social History (Updated 12/04/24 @ 01:00 by Zuleima Dhillon DO) Social History: The patient reports that she lives with her of 70 years. She used to smoke a pack a per day for at least 30 years but quit smoking in 2004 according to nursing documentation. She denies history of alcohol use. She used to work in retail. She raised 2 daughters and 1 son. Code status: Full code [facility] power of attorney at law: Lynne Pelayo Smoking packs per day: 1 Smoking cigarettes per day: 20.0 Years smoked: 32 Smoking pack-years: 32.00 Smoking status: Former smoker Tobacco type: cigarettes Second hand tobacco smoke exposure: No Smoking end date: 03/12/04 Additional smoking assessment comments: quit 30 years ago Alcohol intake: never Substance use: never Substance use type: does not use Lack of Transportation: No Lack of Food: Never True Current Housing: I Have Housing Concerned About Future Housing: No Difficulty Paying Gas/Electric Bills: No Difficulty Paying for Meds: No Currently Unemployed: YES Education: High School Diploma/GED Difficulty w/ Childcare or Family Care: No Living arrangements: with family Spiritual care concerns: No Meds Home Medications and Allergies Home Medications ?Medication ?Instructions ?Recorded ?Confirmed ?Type aspirin 81 mg tablet,delayed 81 mg PO DAILY 09/25/22 0 12/03/24 History release (Adult Aspirin Regimen) clopidogrel 75 mg tablet (Plavix) 75 mg PO DAILY 09/2512/03/24 History sertraline 100 mg tablet See Rx Instructions .Route 1 04/13/23 12/03/24 Rx .COMPLEX #90 tabs levothyroxine 88 mcg tablet See Rx Instructions .Route 07/16/24 12/03/24 Rx .COMPLEX #90 tabs rosuvastatin 10 mg tablet See Rx Instructions .Route 0 10/14/24 12/03/24 Rx .COMPLEX #90 tabs cyanocobalamin (vitamin B-12) 500 500 mcg PO DAILY 12/03/24 History mcg tablet folic acid 1 mg tablet 1 mg PO DAILY 12/03/2412/03 History Allergies Allergy/AdvReac Type Severity Reaction Status Date / Time No Known Allergies Allergy Verified 12/03/24 17:42 Vital Signs Vital Signs - 24 hr 12/03/24 17:39 12/03/24 17:49 12/03/24 18:05 Temperature 98.2 F 97.9 F Pulse Rate 78 144 H 148 H Respiratory Rate 16 24 H Blood Pressure 112/65 118/82 Pulse Oximetry 16 L 95 Oxygen Delivery Room Air 12/03/24 18:05 12/03/24 18:16 12/03/24 18:30 Temperature Pulse Rate 137 H 118 H Respiratory Rate 29 H 27 H Blood Pressure Pulse Oximetry 95 94 Oxygen Delivery 12/03/24 18:31 12/03/24 18:45 12/03/24 19:17 Temperature 98.6 F Pulse Rate 114 H 112 H 115 H Respiratory Rate 28 H 34 H 18 Blood Pressure 120/74 117/68 Pulse Oximetry 94 97 98 Oxygen Delivery Exam 2 Narrative: Weight 86.6 kg BMI 30.8 Const: Other: No acute distress, obese, elderly HENMT: Other: Head is normocephalic atraumatic, mucous membranes are tacky, no oral pharyngeal erythema, upper dentures in place, multiple missing teeth in lower jaw but remainder of dentition is fair Eyes: Other: Bilateral lens implants noted, pupils are equal and reactive Neck: Other: No JVD, no lymphadenopathy Resp: Other: Lungs are clear to auscultation bilaterally, no increased work of breathing Cardio: Other: Irregularly irregular, tachycardic, 2+ bilateral radial pulses, 1+ left pedal pulse, 2+ right pedal pulse, no JVD GI: Other: Soft, nontender, obese : Other: Pure wick catheter in place Skin: Other: Generalized pallor, non jaundice, no petechiae Neuro: Other: Alert oriented to place, initially stated that the month was October but corrected herself to November, she could not come up with the year at all in stated that the year was 193, she could name the current president, she reports that she is hard of hearing and does not have her hearing aids with her, she moves all extremities equally Extrem: Other: No clubbing, no cyanosis, trace edema to the right lower extremity, 2+ edema the left lower extremity extending up into the thigh Psych: Other: Pleasantly confused, cooperative H&P: Results Labs Labs: Laboratory Tests 12/03/24 19:53 12/03/24 18:04 12/03/24 12/03/24 12/03/24 18:04 19:53 21:22 WBC 10.7 H 9.0 RBC 2.81 L 2.55 L Hgb 11.1 L 10.0 L Hct 34.0 L 30.9 L MCV 121.0 H 121.2 H MCH 39.5 H 39.2 H MCHC 32.6 32.4 RDW 14.6 H 14.6 H Plt Count 295 225 MPV 10.8 H 10.7 H Immature Gran % (Auto) 0.7 H 0.9 H Neut % (Auto) 78.0 H 77.8 H Lymph % (Auto) 11.0 L 10.5 L [place] % (Auto) 8.9 H 9.2 H Eos % (Auto) 0.9 1.2 Baso % (Auto) 0.5 0.4 Lymph # (Auto) 1.17 0.95 [place] # (Auto) 1.0 H 0.8 H Eos # (Auto) 0.1 0.1 Baso # (Auto) 0.1 0.0 Abs Immat Gran (auto) 0.07 H 0.08 H Absolute Neuts (auto) 8.3 H 7.0 H Absolute Nucleated RBC 0.000 0.000 Band Neutrophils % Not Reportable Not Reportable Nucleated RBC % 0.0 0.0 Platelet Estimate Adequate Adequate Clumped Platelets Present Anisocytosis 1+ 1+ Macrocytosis 1+ 1+ Ovalocytes 1+ Occasional Schistocytes None seen None seen PT 16.5 H INR 1.3 APTT 40.7 H Sodium 130 L Potassium 4.3 Chloride 99 Carbon Dioxide 20 L Anion Gap 11 BUN 34 H D Creatinine 1.67 H Estim Creat Clear Calc 23 Estimated GFR 29 L Glucose 134 H Calcium 8.5 Total Bilirubin 1.6 H AST 101 H ALT 66 H Alkaline Phosphatase 129 H Troponin I < 0.012 < 0.012 NT-Pro-B Natriuret Pep 4790 H Total Protein 7.1 Albumin 3.7 Impressions Chest X-Ray 12/03/24 18:13 IMPRESSION: 1. No acute cardiopulmonary findings given portable technique. Chest CTA 12/03/24 19:36 IMPRESSION: 1. Bilateral pulmonary embolism, moderate thrombus burden. Venous Doppler Study 12/03/24 19:56 IMPRESSION: 1. No DVT either leg. EK EKGs personally reviewed and interpreted. The most recent demonstrated AFib with rapid ventricular response rate 122 QTC 446 Assessment and Plan Assessment and plan (1) Bilateral pulmonary embolism: Code(s): I26.99 - Other pulmonary embolism without acute cor pulmonale Status: Acute (2) Paroxysmal atrial fibrillation with RVR: Code(s): I48.0 - Paroxysmal atrial fibrillation Status: Acute (3) Acute kidney injury superimposed on stage 3b chronic kidney disease: Code(s): N17.9 - Acute kidney failure, unspecified; N18.32 - Chronic kidney disease, stage 3b Status: Acute (4) Acute hyponatremia: Code(s): E87.1 - Hypo-osmolality and hyponatremia Status: Acute (5) Acute on chronic anemia: Code(s): D64.9 - Anemia, unspecified Status: Acute (6) Macrocytosis: Code(s): D75.89 - Other specified diseases of blood and blood-forming organs Status: Acute (7) Transaminitis: Code(s): R74.01 - Elevation of levels of liver transaminase levels Status: Acute (8) Hypothyroidism: Qualifiers: Hypothyroidism type: unspecified Qualified Code(s): E03.9 - Hypothyroidism, unspecified Code(s): E03.9 - Hypothyroidism, unspecified Status: Acute Plan Patient presents with acute onset AFib RVR likely due to heart strain from acute pulmonary embolism. Underlying pulmonary embolism could be related to patient's myelodysplastic process, Pedro 2 mutation or developing malignancy. Given report of left leg pain will obtain venous Doppler to evaluate for possible DVT. Patient been started on heparin drip per protocol. Unfortunately we do not have oncology coverage this weekend. Patient does follow with Dr. Gutierrez as outpatient. Weight has start patient on oral anticoagulant in the next 24-48 hours and hopefully have follow-up as outpatient with her primary oncologist. Will obtain echocardiogram to evaluate for possible right heart strain. Serial troponins are negative thus far. Patient's heart rate has improved with IV metoprolol and 1 L IV fluid infusion at 150 mL an hour. Will start on oral metoprolol and monitor. Patient does have acute kidney injury complicating chronic kidney disease stage IIIB and transaminitis likely secondary to hypoperfusion from AFib RVR. Will treat underlying cause and monitor. Will monitor fluid status closely. Will avoid nephrotoxic and hepatotoxic medications. Patient may also have some component of hypovolemia in the setting of acute hyponatremia. Patient's heart rate did improve with volume resuscitation as mentioned above. Will repeat CBC and electrolyte panel in a.m.. Will check TSH with a.m. labs to rule out component of subclinical thyroid disease. MEDICAL DECISION MAKING NARRATIVE -Spoke with the ED provider in detail regarding patient's evaluation, workup and management -Patient seen and examined at bedside -Collaborated with patient's nurse at the bedside in detail and addressed all concerns -Labs, electrolytes, radiology, investigations and test results personally reviewed and interpreted unless otherwise specified -ED/Consult/Nursing/Ancilliary notes on the chart reviewed and appreciated -Spoke with patient at bedside and diagnosis and plan of care was discussed. All questions answered. Quality VTE Prophylaxis VTE prophylaxis: pharmacologic ordered (Heparin GGT per protocol) Hospitalist MIPS Advance Care Plan I have confirmed that the patient's Advanced Care Plan is present, code status is documented, or surrogate decision maker is listed in patient medical record.: Yes Medication Reconciliation I have utilized all available resources to obtain, update and review the patients current medications (includes all prescriptions, OTC, herbals, cannabis, and nutritional supplements).: Yes
[2024-12-03 21:50] LABS: Troponin I < 0.012 ng/mL (0.000-0.034)
[2024-12-04] VITALS (20 sets, daily range): BP systolic 114–149; BP diastolic 54–87; PULSE 75–119; RESP 16–22; TEMP 36.6–36.8; O2SAT 94–100
[2024-12-04] MEDS: METOPROLOL TARTRATE 25 MG TABLET PO ×3 (00:53→21:09)
[2024-12-04 03:23] LABS: Hematocrit 31.5 % (37.0-47.0); Hemoglobin 10.2 g/dL (12.0-15.0); Immature Granulocyte Percent A 0.6 % (0-0.5); Lymphocytes Absolute Auto 1.26 K/mm3 (0.9-3.2); Mean Corpuscular HGB Conc 32.4 g/dl (32-36); Mean Corpuscular Hemoglobin 39.2 pg (26-34); Mean Corpuscular Volume 121.2 fl (80-100); Nucleated Red Blood Cells Absolute Auto 0.000 K/mm3 (0.0-0.012); Nucleated Red Blood Cells Perc 0.0 % (0.0-0.2); Platelet Count Result 212 k/mm3 (150-375); Red Blood Count 2.60 M/mm3 (4.2-5.4); White Blood Count 6.9 K/mm3 (4.5-10.0)
[2024-12-04 03:49] LABS: Thyroid Stimulating Hormone 0.761 uIU/mL (0.465-4.680)
[2024-12-04 03:50] LABS: Partial Thromboplastin Time > 200.0 Seconds (22.3-36.8)
[2024-12-04 03:59] LABS: Anisocytosis 1+; Macrocytosis 1+ (NORMAL); Ovalocytes Occasional; Schistocytes None Seen
--- NOTE | 2024-12-04 06:00 | ECHO_ITS ---
Patient Info Name: Kayla Tierney Age: 89 years : 1935 Gender: Female Ht: 66 in Wt: 191 lbs BSA: 2.04 m2 HR: 96 bpm BP: 148 / 76 mmHg Heart Rhythm: Atrial Fibrillation Technical Quality: Good Exam Date: 12/04/2024 10:14 AM Patient Status: I Admit Date: 12/03/2024 Exam Type: CA echo doppler color flow Complete two-dimensional, color flow and Doppler transthoracic echocardiogram is performed. Staff Referring Physician: Zuleima Dhillon DO [employer] Associate: Jones Bautista III Attending Provider: Zuleima Dhillon DO Summary 1. Complete two-dimensional, color flow and Doppler transthoracic echocardiogram is performed. 2. Left ventricular chamber dimension is normal. 3. Left ventricular systolic function is normal, estimated at 65-70. 4. There is mild concentric increased left ventricular wall thickness. 5. The left ventricular diastolic function is abnormal. 6. E/e' 14 is mildly elevated. 7. Atrial fibrillation. 8. Left atrial chamber dimension is mildly enlarged. 9. Right atrial chamber dimension is mildly enlarged. 10. The mitral valve has a moderately calcified annulus. 11. There is trace mitral valve regurgitation. 12. There is moderate tricuspid valve regurgitation. 13. Mild pulmonary hypertension, estimated pulmonary arterial systolic pressure is 44 mmHg. Left Ventricle E/e' 14 is mildly elevated. Left ventricular chamber dimension is normal. Left ventricular systolic function is normal, estimated at 65-70. There is mild concentric increased left ventricular wall thickness. The left ventricular diastolic function is abnormal. Atrial fibrillation. Right Ventricle Right ventricular chamber dimension is normal. Right ventricular systolic function is normal. Left Atria Left atrial chamber dimension is mildly enlarged. Right Atria Right atrial chamber dimension is mildly enlarged. Aortic Valve The aortic valve is trileaflet. There is mild aortic valve sclerosis. There is no aortic valve stenosis. There is no aortic valve regurgitation. Pulmonic Valve There is no pulmonic regurgitation. Mitral Valve The mitral valve has a moderately calcified annulus. There is no mitral valve stenosis. There is trace mitral valve regurgitation. Tricuspid Valve There is moderate tricuspid valve regurgitation. Mild pulmonary hypertension, estimated pulmonary arterial systolic pressure is 44 mmHg. Pericardium/Pleural There is no pericardial effusion. Inferior Vena Cava Normal inferior vena cava with >50% collapse upon inspiration consistent with normal right atrial pressure, 5 mmHg. Aorta The aortic root size at the sinus of Valsalva is normal. Left Ventricular Outflow Tract Name Value Normal LVOT 2D LVOT Diameter 2.1 cm LVOT Doppler LVOT Peak Velocity 102 cm/s LVOT Peak Gradient 4 mmHg LVOT Mean Gradient 2 mmHg LVOT VTI 19 cm LVOT VTI/AV VTI Ratio 0.5 LVOT Stroke Volume 63 ml LVOT CO 5.0 l/min LVOT CI 2.5 l/min/m2 Pulmonic Valve Name Value Normal PV Doppler PV Peak Velocity 100 cm/s PV Peak Gradient 4 mmHg PV Mean Gradient 2 mmHg Mitral Valve Name Value Normal MV Doppler MV Peak Gradient 7 mmHg MV Mean Gradient 2 mmHg MV Area (Cont Eq VTI) 2.0 cm2 MV Diastolic Function MV E Peak Velocity 135 cm/s MV Decel Time (PW) 228 ms MV Annular TDI MV E/e' (Septal) 16.7 MV E/e' (Lateral) 13.2 MV E/e' (Average) 15.0 Tricuspid Valve Name Value Normal TV Regurgitation Doppler TR Peak Velocity 311 cm/s TR Peak Gradient 39 mmHg Estimated PAP/RSVP RA Pressure 5 mmHg <=5 PA Systolic Pressure 44 mmHg <36 RV Systolic Pressure 44 mmHg <36 TV Annular TDI TV Lateral Piper s' Velocity 13.4 cm/s >=9.5 Aortic Valve Name Value Normal AV Doppler AV Peak Velocity 180 cm/s AV Peak Gradient 13 mmHg AV Mean Gradient 8 mmHg AV VTI 35 cm AV Area (Cont Eq VTI) 1.8 cm2 >=3.0 AV Area (Cont Eq Jd) 1.9 cm2 AV DI (Jd) 0.57 AV Regurgitation 2D LVOT Area 3.4 cm2 Ventricles Name Value Normal LV Dimensions 2D/MM IVS Diastolic Thickness (2D) 1.1 cm 0.6-1.0 LVID Diastole (2D) 3.7 cm 3.8-5.2 LVIW Diastolic Thickness (2D) 1.0 cm 0.6-0.9 LVID Systole (2D) 2.4 cm 2.2-3.5 LVOT Diameter 2.1 cm LV Mass (2D Cubed) 114.50 g 67.00-162.00 LV Mass Index (2D Cubed) 56 g/m2 43-95 Relative Wall Thickness (2D) 0.54 <=0.42 LV Fractional Shortening/Ejection Fraction 2D/MM LV Fractional Shortening (2D) 35 % 27-45 LV EF (2D Teichholz) 65 % LV Diastolic Volume (4C MOD) 34 ml LV EF (4C MOD) 72 % LV Diastolic Volume (2C MOD) 28 ml LV EF (2C MOD) 63 % LV Diastolic Volume (BP MOD) 31 ml 46-106 LV Diastolic Volume Index (BP MOD) 15 ml/m2 29-61 LV Systolic Volume (BP MOD) 12 ml 14-42 LV Systolic Volume Index (BP MOD) 6 ml/m2 8-24 LV EF (BP MOD) 61 % 54-74 LV Diastolic Length (4C) 6.9 cm LV Systolic Length (4C) 5.3 cm LV Stroke Volume (4C MOD) 25 ml Atria Name Value Normal LA Dimensions LA Volume (4C A-L) 68 ml LA Volume (BP A-L) 73 ml RA Dimensions RA Systolic Major [place] Length (4C) 5.2 cm 2.2-2.8 RA Area (4C) 19.1 cm2 <=18.0 Report Signatures
[2024-12-04] MEDS: LEVOTHYROXINE SODIUM 88 MCG TABLET PO (06:09)
[2024-12-04] MEDS: CYANOCOBALAMIN 500 MCG TABLET PO (09:13)
[2024-12-04] MEDS: SERTRALINE HCL 50 MG TABLET PO (09:13)
[2024-12-04] MEDS: FOLIC ACID 1 MG TABLET PO (09:13)
[2024-12-04] MEDS: CLOPIDOGREL BISULFATE 75 MG TABLET PO (09:13)
[2024-12-04 11:27] LABS: Partial Thromboplastin Time 110.2 Seconds (22.3-36.8)
[2024-12-04 11:32] LABS: Alanine Aminotransferase 78 U/L (6-35); Albumin Level 3.2 g/dL (3.5-5.1); Alkaline Phosphatase 117 U/L (38-126); Anion Gap 6 mmol/L (4-12); Aspartate Amino Transferase 97 U/L (14-36); Bilirubin,Total 1.3 mg/dL (0.2-1.3); Blood Urea Nitrogen 32 mg/dL (7-17); Calcium 8.2 mg/dL (8.4-10.2); Carbon Dioxide 26 mmol/L (22-30); Chloride 99 mmol/L (98-107); Estimated CRCL calculation 26 ml/min; Estimated Glomerular Filt Rate 34; Glucose 109 mg/dL (65-110); Potassium 4.0 mmol/L (3.4-5.0); Sodium 131 mmol/L (137-145); Total Protein 6.2 g/dL (6.3-8.2)
--- NOTE | 2024-12-04 11:53 | PM.IMPN ---
Progress Note: A&P Assessment and Plan (1) Bilateral pulmonary embolism: Code(s): I26.99 - Other pulmonary embolism without acute cor pulmonale Status: Acute (2) Paroxysmal atrial fibrillation with RVR: Code(s): I48.0 - Paroxysmal atrial fibrillation Status: Acute (3) Acute kidney injury superimposed on stage 3b chronic kidney disease: Code(s): N17.9 - Acute kidney failure, unspecified; N18.32 - Chronic kidney disease, stage 3b Status: Acute (4) Acute hyponatremia: Code(s): E87.1 - Hypo-osmolality and hyponatremia Status: Acute (5) Acute on chronic anemia: Code(s): D64.9 - Anemia, unspecified Status: Acute (6) Macrocytosis: Code(s): D75.89 - Other specified diseases of blood and blood-forming organs Status: Acute (7) Transaminitis: Code(s): R74.01 - Elevation of levels of liver transaminase levels Status: Acute (8) Hypothyroidism: Qualifiers: Hypothyroidism type: unspecified Qualified Code(s): E03.9 - Hypothyroidism, unspecified Code(s): E03.9 - Hypothyroidism, unspecified Status: Acute Plan Patient presents with acute onset AFib RVR likely due to heart strain from acute pulmonary embolism. Underlying pulmonary embolism could be related to patient's myelodysplastic process, JESSIE 2 mutation or developing malignancy. TSH normal. [id number] 5. Left leg pain and edema noted. LE venous doppler negative for DVT. Resolving LLE DVT? Heparin drip started per protocol. Patient does follow with Dr. Gutierrez as outpatient - consult hematology. Plan to start patient on oral anticoagulant in the next 24-48 hours and follow-up as outpatient with her primary oncologist. Echo showing EF 65-70% with diastolic dysfunction, Biatrial enlargement and mild pulm HTN. Serial troponins are negative x2. BNP 4790 Given IV metoprolol and 1 L IV fluid infusion at 150 mL an hour and HR improved. Oral metoprolol 25mg Q12H started with good rate control. Cardiology consulted. Patient does have COLLINS/CKD stage IIIB secondary to hypoperfusion from AFib RVR. Cr trending down 167 -> 1.45 Alos with transaminitis likely secondary to hepatic congestion? Avoid nephrotoxic and hepatotoxic medications. Hold Crestor until LFTs improve has PAD with stents requiring Plavix which was continued here. Patient may also have some component of hypovolemia in the setting of acute hyponatremia and was treated with IVF. Increase activity. Monitor on tele DVT prophylaxis - Heparin drip Code status - full Subjective Date/time seen: 12/04/24 11:53 Interval history: 89-year-old female with a past medical history of JESSIE 2 mutation with primary thrombocytosis, iron deficiency anemia, megaloblastic anemia (all which are managed by Dr. Escamilla), peripheral artery disease with lower extremity stents, carotid stenosis, essential hypertension and hypothyroidism who presented to the ER with leg pain Feeling better. No SOB. No CP. No n/v. Not been out of bed yet. No leg pain. Exam Narrative: AF 98.2 141/74 104 16 100% ra Gen - NARD lying flat. Chest - CTA bilaterally, nml RR CV - RRR S1/S2. tele showing AFib with controlled rate. Abd - Soft, NT/ND, Positive BS Ext - left LE edema. Neuro - Alert and appropriate Psych - Nml mood and affect Skin - Warm and dry Objective Data Vital Signs Vital Signs: Vital Signs - 24 hr 12/03/24 17:39 12/03/24 17:49 12/03/24 18:05 Temperature 98.2 F 97.9 F Pulse Rate 78 144 H 148 H Respiratory Rate 16 24 H Blood Pressure 112/65 118/82 Pulse Oximetry 16 L 95 Oxygen Delivery Room Air 12/03/24 18:05 12/03/24 18:16 12/03/24 18:30 Temperature Pulse Rate 137 H 118 H Respiratory Rate 29 H 27 H Blood Pressure Pulse Oximetry 95 94 Oxygen Delivery 12/03/24 18:31 12/03/24 18:45 12/03/24 19:17 Temperature 98.6 F Pulse Rate 114 H 112 H 115 H Respiratory Rate 28 H 34 H 18 Blood Pressure 120/74 117/68 Pulse Oximetry 94 97 98 Oxygen Delivery 12/03/24 22:00 12/03/24 23:41 12/04/24 00:00 Temperature 98.3 F Pulse Rate 118 H 120 H 110 H Respiratory Rate 18 Blood Pressure 149/89 H Pulse Oximetry 97 Oxygen Delivery 12/04/24 00:53 12/04/24 02:00 12/04/24 03:57 Temperature 98.3 F Pulse Rate 119 H 101 H 104 H Respiratory Rate 18 Blood Pressure 148/76 H Pulse Oximetry 99 Oxygen Delivery 12/04/24 04:00 12/04/24 06:00 12/04/24 07:29 Temperature 98.2 F Pulse Rate 96 97 102 H Respiratory Rate 16 Blood Pressure 141/74 H Pulse Oximetry 100 Oxygen Delivery 12/04/24 08:00 12/04/24 09:14 Temperature Pulse Rate 95 104 H Respiratory Rate Blood Pressure Pulse Oximetry Oxygen Delivery Intake/Output Intake/Output: Intake & Output 12/01/24 12/02/24 12/03/24 12/04/24 23:59 23:59 23:59 23:59 Intake Total 577.3 Output Total 400 Balance 177.3 Meds/Results Medications: Active Medications Generic Name Dose Route Start Last Admin Trade Name Freq PRN Reason Stop Dose Admin Acetaminophen 650 mg 12/03/24 20:19 Acetaminophen 325 Mg Tablet PO Q4H PRN Mild Pain (1-3) or Fever Clopidogrel Bisulfate 75 mg 12/04/24 09:00 12/04/24 09:13 Clopidogrel Bisulfate 75 Mg Tablet PO 75 mg DAILY NEHAL Administration Cyanocobalamin 500 mcg 12/04/24 09:00 12/04/24 09:13 Cyanocobalamin 500 Mcg Tablet PO 500 mcg DAILY NEHAL Administration Folic Acid 1 mg 12/04/24 09:00 12/04/24 09:13 Folic Acid 1 Mg Tablet PO 1 mg DAILY NEHAL Administration Heparin Sodium (Porcine) 5,500 units 12/03/24 19:46 Heparin Sodium 5,000 Units/Ml Vial IV PUSH PRN PRN aPTT less than 55 seconds Heparin Sodium (Porcine) 3,000 units 12/03/24 19:46 Heparin Sodium 5,000 Units/Ml Vial IV PUSH PRN PRN aPTT 55 - 70 seconds Heparin Sodium/Dextrose 25,000 units in 250 mls @ 11 mls/hr 12/03/24 20:30 12/04/24 04:52 Heparin Sodium/D5w 100 Units/Ml IV CONT 1,100 units/hr .[id number] NEHAL 11 mls/hr Protocol Titration 1,100 UNITS/HR Levothyroxine Sodium 88 mcg 12/04/24 06:30 12/04/24 06:09 Levothyroxine Sodium 88 Mcg Tablet PO 88 mcg DAILY@0630 [facility] Administration Metoprolol Tartrate 5 mg 12/03/24 19:47 Metoprolol Tartrate Inj 5 Mg/5 Ml Vial IV PUSH Q5M PRN Afib RVR HR >110 Metoprolol Tartrate 25 mg 12/04/24 09:00 12/04/24 09:14 Metoprolol Tartrate 25 Mg Tablet PO 25 mg Q12HR NEHAL Administration Ondansetron HCl 4 mg 12/03/24 20:19 Ondansetron Inj 4 Mg/2 Ml Vial IV PUSH Q4H PRN Nausea Perflutren Lipid Microsphere 0 ml 12/03/24 20:19 Perflutren Lipid Microspheres 1.5 Ml Vial Diluted To 10 Ml Total Volume IV PUSH 12/06/24 20:20 ONCE PRN adequate visualization Protocol Rosuvastatin Calcium 10 mg 12/04/24 09:00 Rosuvastatin 10 Mg Tablet PO On Hold: 12/04/24 09:00 DAILY NEHAL Sertraline HCl 50 mg 12/04/24 09:00 12/04/24 09:13 Sertraline Hcl 50 Mg Tablet PO 50 mg DAILY NEHAL Administration Radiology Results: ITS Impressions Chest X-Ray 12/03/24 18:13 IMPRESSION: 1. No acute cardiopulmonary findings given portable technique. Chest CTA 12/03/24 19:36 IMPRESSION: 1. Bilateral pulmonary embolism, moderate thrombus burden. Venous Doppler Study 12/03/24 19:56 IMPRESSION: 1. No DVT either leg. Labs Labs: Laboratory Results - last 24 hr 12/03/24 12/03/24 12/03/24 18:04 19:53 21:22 WBC 10.7 H 9.0 RBC 2.81 L 2.55 L Hgb 11.1 L 10.0 L Hct 34.0 L 30.9 L MCV 121.0 H 121.2 H MCH 39.5 H 39.2 H MCHC 32.6 32.4 RDW 14.6 H 14.6 H Plt Count 295 225 MPV 10.8 H 10.7 H Immature Gran % (Auto) 0.7 H 0.9 H Neut % (Auto) 78.0 H 77.8 H Lymph % (Auto) 11.0 L 10.5 L [place] % (Auto) 8.9 H 9.2 H Eos % (Auto) 0.9 1.2 Baso % (Auto) 0.5 0.4 Lymph # (Auto) 1.17 0.95 [place] # (Auto) 1.0 H 0.8 H Eos # (Auto) 0.1 0.1 Baso # (Auto) 0.1 0.0 Abs Immat Gran (auto) 0.07 H 0.08 H Absolute Neuts (auto) 8.3 H 7.0 H Absolute Nucleated RBC 0.000 0.000 Band Neutrophils % Not Reportable Not Reportable Nucleated RBC % 0.0 0.0 Platelet Estimate Adequate Adequate Clumped Platelets Present Anisocytosis 1+ 1+ Macrocytosis 1+ 1+ Ovalocytes 1+ Occasional Schistocytes None seen None seen PT 16.5 H INR 1.3 APTT 40.7 H Sodium 130 L Potassium 4.3 Chloride 99 Carbon Dioxide 20 L Anion Gap 11 BUN 34 H D Creatinine 1.67 H Estim Creat Clear Calc 23 Estimated GFR 29 L Glucose 134 H Calcium 8.5 Total Bilirubin 1.6 H AST 101 H ALT 66 H Alkaline Phosphatase 129 H Troponin I < 0.012 < 0.012 NT-Pro-B Natriuret Pep 4790 H Total Protein 7.1 Albumin 3.7 TSH 12/04/24 12/04/24 02:51 10:58 WBC 6.9 RBC 2.60 L Hgb 10.2 L Hct 31.5 L MCV 121.2 H MCH 39.2 H MCHC 32.4 RDW 14.6 H Plt Count 212 MPV 10.4 Immature Gran % (Auto) 0.6 H Neut % (Auto) 69.8 Lymph % (Auto) 18.2 L [place] % (Auto) 9.4 H Eos % (Auto) 1.7 Baso % (Auto) 0.3 Lymph # (Auto) 1.26 [place] # (Auto) 0.7 H Eos # (Auto) 0.1 Baso # (Auto) 0.0 Abs Immat Gran (auto) 0.04 H Absolute Neuts (auto) 4.8 Absolute Nucleated RBC 0.000 Band Neutrophils % Not Reportable Nucleated RBC % 0.0 Platelet Estimate Adequate Clumped Platelets Anisocytosis 1+ Macrocytosis 1+ Ovalocytes Occasional Schistocytes None seen PT INR APTT > 200.0 H* 110.2 H Sodium 131 L Potassium 4.0 Chloride 99 Carbon Dioxide 26 Anion Gap 6 BUN 32 H Creatinine 1.45 H Estim Creat Clear Calc 26 Estimated GFR 34 L Glucose 109 Calcium 8.2 L Total Bilirubin 1.3 AST 97 H ALT 78 H Alkaline Phosphatase 117 Troponin I NT-Pro-B Natriuret Pep Total Protein 6.2 L Albumin 3.2 L TSH 0.761
--- NOTE | 2024-12-04 12:47 | PM.CNCAR ---
Assessment and Plan Assessment and plan (1) Paroxysmal atrial fibrillation with RVR: Code(s): I48.0 - Paroxysmal atrial fibrillation Status: Acute Assessment and Plan: Asymptomatic. Probably due to pulm embolism. [id number] 5. Rate is controlled on Metoprolol. On heparin drip. Upon discharge change heparin to DOAC. (2) Bilateral pulmonary embolism: Code(s): I26.99 - Other pulmonary embolism without acute cor pulmonale Status: Acute Assessment and Plan: On heparin drip. Probably originated in leg but progressed to lungs. Needs 6 months of anticoagulation, and would stop aspirin. (3) Hyperlipidemia: Code(s): E78.5 - Hyperlipidemia, unspecified Status: Acute Assessment and Plan: On Rosuvastatin. (4) PAD (peripheral artery disease): Code(s): I73.9 - Peripheral vascular disease, unspecified Status: Acute Assessment and Plan: On Clopidogrel. History of Present Illness History of Present Illness Consult date/time: 12/04/24 12:47 Reason For Visit: pain in my leg veins Narrative: 89 yr old woman admitted for leg pain and FORDE. She has a history of PAD with stents in her legs, carotid stenosis, hypertension, JESSIE 2 mutation with primary thrombocytosis, GIOVANNI, megaloblastic anemia. Reports she noted more FORED and left leg edema in last 2 weeks and has been sedentary due to it. It is found she has bilateral pulmonary emboli and new onset atrial fibrillation, and no DVT of legs. She denies chest pain, sob, orthopnea, PND, dizziness. Review of Systems Review of Systems: All systems reviewed & are unremarkable except as noted in HPI and below Constitutional: Constitutional: Reports as per HPI, Denies chills, Reports fatigue and Denies fever(s) Cardiovascular: Cardiovascular: Reports as per HPI and Denies chest pain Respiratory: Respiratory: Reports as per HPI and Reports dyspnea Gastrointestinal: Gastrointestinal: Reports as per HPI and Denies abdominal pain Genitourinary: Genitourinary: Reports as per HPI and Denies dysuria Musculoskeletal: Musculoskeletal: Reports as per HPI Neurologic: Reports as per HPI, Denies dizziness and Denies syncope [facility] Past Medical History Medical History (Updated 12/04/24 @ 12:51 by Selvin Galindo DO) Spinal stenosis, lumbar region without neurogenic claudication CKD (chronic kidney disease) stage 3, GFR 30-59 ml/min B12 deficiency Essential thrombocytosis Vitamin D deficiency, unspecified Polycythemia vera Jessie 2 mutation Hyperglycemia Hypercholesterolemia Surgical History Surgical History (Updated 12/03/24 @ 22:00 by Zuleima Dhillon DO) History of laparoscopic appendectomy (~2019) Peripheral arterial disease with history of revascularization Family History Family History (Updated 12/03/24 @ 22:19 by Zuleima Dhillon DO) Sibling Family history of elevated blood lipids Carcinoma of colon Father Lung cancer Mother Breast cancer Social History Social History (Updated 12/04/24 @ 01:00 by Zuleima Dhillon DO) Social History: The patient reports that she lives with her of 70 years. She used to smoke a pack a per day for at least 30 years but quit smoking in 2004 according to nursing documentation. She denies history of alcohol use. She used to work in retail. She raised 2 daughters and 1 son. Code status: Full code Healthcare power of document review attorney: Lynne Pelayo Smoking packs per day: 1 Smoking cigarettes per day: 20.0 Years smoked: 32 Smoking pack-years: 32.00 Smoking status: Former smoker Tobacco type: cigarettes Second hand tobacco smoke exposure: No Smoking end date: 03/12/04 Additional smoking assessment comments: quit 30 years ago Alcohol intake: never Substance use: never Substance use type: does not use Lack of Transportation: No Lack of Food: Never True Current Housing: I Have Housing Concerned About Future Housing: No Difficulty Paying Gas/Electric Bills: No Difficulty Paying for Meds: No Currently Unemployed: YES Education: High School Diploma/GED Difficulty w/ Childcare or Family Care: No Living arrangements: with family Spiritual care concerns: No Meds Home Medications and Allergies Home Medications ?Medication ?Instructions ?Recorded ?Confirmed ?Type aspirin 81 mg tablet,delayed 81 mg PO DAILY 09/25/22 12/03/24 History release (Adult Aspirin Regimen) clopidogrel 75 mg tablet (Plavix) 75 mg PO DAILY 09/25/22 12/03/24 History sertraline 100 mg tablet See Rx Instructions .Route 02/11/24 12/03/24 Rx .COMPLEX #90 tabs levothyroxine 88 mcg tablet See Rx Instructions .Route 07/16/24 12/03/24 Rx .COMPLEX #90 tabs rosuvastatin 10 mg tablet See Rx Instructions .Route 10/14/24 12/03/24 Rx .COMPLEX #90 tabs cyanocobalamin (vitamin B-12) 500 500 mcg PO DAILY 12/03/24 12/03/24 History mcg tablet folic acid 1 mg tablet 1 mg PO DAILY 12/03/24 12/03/24 History Allergies Allergy/AdvReac Type Severity Reaction Status Date / Time No Known Allergies Allergy Verified 12/03/24 17:42 Vital Signs Vital Signs - 24 hr 12/03/24 17:39 12/03/24 17:49 12/03/24 18:05 Temperature 98.2 F 97.9 F Pulse Rate 78 144 H 148 H Respiratory Rate 16 24 H Blood Pressure 112/65 118/82 Pulse Oximetry 16 L 95 Oxygen Delivery Room Air 12/03/24 18:05 12/03/24 18:16 12/03/24 18:30 Temperature Pulse Rate 137 H 118 H Respiratory Rate 29 H 27 H Blood Pressure Pulse Oximetry 95 94 Oxygen Delivery 12/03/24 18:31 12/03/24 18:45 12/03/24 19:17 Temperature 98.6 F Pulse Rate 114 H 112 H 115 H Respiratory Rate 28 H 34 H 18 Blood Pressure 120/74 117/68 Pulse Oximetry 94 97 98 Oxygen Delivery 12/03/24 22:00 12/03/24 23:41 12/04/24 00:00 Temperature 98.3 F Pulse Rate 118 H 120 H 110 H Respiratory Rate 18 Blood Pressure 149/89 H Pulse Oximetry 97 Oxygen Delivery 12/04/24 00:53 12/04/24 02:00 12/04/24 03:57 Temperature 98.3 F Pulse Rate 119 H 101 H 104 H Respiratory Rate 18 Blood Pressure 148/76 H Pulse Oximetry 99 Oxygen Delivery 12/04/24 04:00 12/04/24 06:00 12/04/24 07:29 Temperature 98.2 F Pulse Rate 96 97 102 H Respiratory Rate 16 Blood Pressure 141/74 H Pulse Oximetry 100 Oxygen Delivery 12/04/24 08:00 12/04/24 09:14 12/04/24 12:00 Temperature 98.2 F Pulse Rate 95 104 H 110 H Respiratory Rate 22 H Blood Pressure 149/64 H Pulse Oximetry 99 Oxygen Delivery Exam Const: General: cooperative, healthy appearing and comfortable Resp: Auscultation: clear to auscultation bilaterally, no crackles, no rales, no rhonchi and no wheezes Cardio: Rate: regular rate Rhythm: abnormal rhythm Heart sounds: no murmurs Peripheral pulses: dorsalis pedis present GI: GI Palp: No abdominal tenderness and Yes Soft to palpation Neuro: General: oriented to person, oriented to place and oriented to time Extrem: Right lower extremity: no edema Left lower extremity: edema Other: Mild left leg edema Results Labs and Meds 12/04/24 02:51 12/04/24 10:58 Lab results: Cardiac Enzymes 12/03/24 12/03/24 12/04/24 Range/Units 18:04 21:22 10:58 AST 101 H 97 H (14-36) U/L Troponin I < 0.012 < 0.012 (0.000-0.034) ng/mL Coagulation 12/03/24 12/04/24 12/04/24 Range/Units 19:53 02:51 10:58 PT 16.5 H (11.1-14.7) Seconds APTT 40.7 H > 200.0 H* 110.2 H (22.3-36.8) Seconds CBC 12/03/24 12/03/24 12/04/24 Range/Units 18:04 19:53 02:51 WBC 10.7 H 9.0 6.9 (4.5-10.0) K/mm3 RBC 2.81 L 2.55 L 2.60 L (4.2-5.4) M/mm3 Hgb 11.1 L 10.0 L 10.2 L (12.0-15.0) g/dL Hct 34.0 L 30.9 L 31.5 L (37.0-47.0) % Plt Count 295 225 212 (150-375) k/mm3 Lymph # (Auto) 1.17 0.95 1.26 (0.9-3.2) K/mm3 [place] # (Auto) 1.0 H 0.8 H 0.7 H (0.1-0.6) K/mm3 Eos # (Auto) 0.1 0.1 0.1 (0-0.3) K/mm3 Baso # (Auto) 0.1 0.0 0.0 (0.0-0.1) K/mm3 Comprehensive Metabolic Panel 12/03/24 12/04/24 Range/Units 18:04 10:58 Sodium 130 L 131 L (137-145) mmol/L Potassium 4.3 4.0 (3.4-5.0) mmol/L Chloride 99 99 (98-107) mmol/L Carbon Dioxide 20 L 26 (22-30) mmol/L BUN 34 H D 32 H (7-17) mg/dL Creatinine 1.67 H 1.45 H (0.7-1.0) mg/dL Glucose 134 H 109 (65-110) mg/dL Calcium 8.5 8.2 L (8.4-10.2) mg/dL AST 101 H 97 H (14-36) U/L ALT 66 H 78 H (6-35) U/L Alkaline Phosphatase 129 H 117 (38-126) U/L Total Protein 7.1 6.2 L (6.3-8.2) g/dL Albumin 3.7 3.2 L (3.5-5.1) g/dL Intake and Output 12/03/24 12/04/24 12/04/24 23:59 07:59 15:59 Intake Total 337.3 317.7 Output Total 400 Balance -62.7 317.7 Intake: IV 97.3 77.7 Heparin Sod/D5w 100 Units/ml 25 97.3 77.7 ,000 units In 250 ml @ 1,100 UNITS/HR 11 mls/hr IV CONT . [id number] [facility] Rx#:[id number] Oral 240 240 Output: Urine 400 Patient Weight 12/04/24 23:59 Weight 87.4 kg
[2024-12-04 18:07] LABS: Partial Thromboplastin Time 76.5 Seconds (22.3-36.8)
[2024-12-04] MEDS: HEPARIN SOD/D5W 100 UNITS/ML 25,000 UNITS/250 ML BAG 10 UNITS IV CONT (20:18)
[2024-12-05] VITALS (15 sets, daily range): BP systolic 114–139; BP diastolic 48–70; PULSE 69–108; RESP 16–20; TEMP 36.6–36.9; O2SAT 96–100
[2024-12-05 01:11] LABS: Hematocrit 32.2 % (37.0-47.0); Hemoglobin 10.3 g/dL (12.0-15.0); Immature Granulocyte Percent A 0.8 % (0-0.5); Lymphocytes Absolute Auto 1.25 K/mm3 (0.9-3.2); Mean Corpuscular HGB Conc 32.0 g/dl (32-36); Mean Corpuscular Hemoglobin 39.0 pg (26-34); Mean Corpuscular Volume 122.0 fl (80-100); Nucleated Red Blood Cells Absolute Auto 0.000 K/mm3 (0.0-0.012); Nucleated Red Blood Cells Perc 0.0 % (0.0-0.2); Platelet Count Result 256 k/mm3 (150-375); Red Blood Count 2.64 M/mm3 (4.2-5.4); White Blood Count 7.1 K/mm3 (4.5-10.0)
[2024-12-05 01:17] LABS: Alanine Aminotransferase 112 U/L (6-35); Albumin Level 3.5 g/dL (3.5-5.1); Alkaline Phosphatase 134 U/L (38-126); Anion Gap 8 mmol/L (4-12); Aspartate Amino Transferase 139 U/L (14-36); Bilirubin,Total 1.4 mg/dL (0.2-1.3); Blood Urea Nitrogen 33 mg/dL (7-17); Calcium 8.4 mg/dL (8.4-10.2); Carbon Dioxide 22 mmol/L (22-30); Chloride 100 mmol/L (98-107); Estimated CRCL calculation 27 ml/min; Estimated Glomerular Filt Rate 35; Glucose 94 mg/dL (65-110); Magnesium 2.4 mg/dL (1.6-2.3); Potassium 4.2 mmol/L (3.4-5.0); Sodium 130 mmol/L (137-145); Total Protein 6.5 g/dL (6.3-8.2)
[2024-12-05 01:18] LABS: Partial Thromboplastin Time 82.6 Seconds (22.3-36.8)
[2024-12-05 01:29] LABS: Hypochromasia 1+; Ovalocytes 1+; Schistocytes None Seen
[2024-12-05 05:31] LABS: Partial Thromboplastin Time 103.9 Seconds (22.3-36.8)
[2024-12-05] MEDS: HEPARIN SOD/D5W 100 UNITS/ML 25,000 UNITS/250 ML BAG 10 UNITS IV CONT (05:43)
[2024-12-05] MEDS: LEVOTHYROXINE SODIUM 88 MCG TABLET PO (06:24)
--- NOTE | 2024-12-05 08:22 | P.PNCA_ITS ---
Progress Note: A&P Assessment and Plan (1) Paroxysmal atrial fibrillation with RVR: Code(s): I48.0 - Paroxysmal atrial fibrillation Status: Acute Assessment and Plan: Asymptomatic. Probably due to pulm embolism. [id number] 5. Rate is controlled on Metoprolol. On heparin drip. Upon discharge change heparin to DOAC. Increase Metoprolol Tartate 37.5 mg BID to improve HR control. (2) Bilateral pulmonary embolism: Code(s): I26.99 - Other pulmonary embolism without acute cor pulmonale Status: Acute Assessment and Plan: On heparin drip. Probably originated in leg but progressed to lungs. Needs 6 months of anticoagulation. (3) Hyperlipidemia: Code(s): E78.5 - Hyperlipidemia, unspecified Status: Acute Assessment and Plan: On Rosuvastatin. (4) PAD (peripheral artery disease): Code(s): I73.9 - Peripheral vascular disease, unspecified Status: Acute Assessment and Plan: On Clopidogrel. (5) Transaminitis: Code(s): R74.01 - Elevation of levels of liver transaminase levels Status: Acute Assessment and Plan: Could be liver congestion. Start Lasix 20 mg PO daily. Monitor. Subjective Date/time seen: 12/05/24 08:22 Interval history: Denies chest pain or sob. Exam Const: General: cooperative, healthy appearing and comfortable Orientation/consciousness: oriented to person, oriented to place and oriented to time Resp: Auscultation: clear to auscultation bilaterally, no crackles, no rales, no rhonchi and no wheezes Cardio: Rate: tachycardic Rhythm: abnormal rhythm Heart sounds: no murmurs Peripheral pulses: dorsalis pedis present Neuro: General: oriented to person, oriented to place and oriented to time Extrem: Right lower extremity: no edema Left lower extremity: edema Other: Mild left leg edema Objective Data Vital Signs Vital Signs: Vital Signs - 24 hr 12/04/24 09:00 12/04/24 09:14 12/04/24 10:00 Temperature Pulse Rate 104 H 98 Respiratory Rate Blood Pressure Pulse Oximetry 97 Oxygen Delivery Room Air Fraction of Inspired Oxygen 12/04/24 12:00 12/04/24 12:00 12/04/24 12:00 Temperature 98.2 F Pulse Rate 110 H 101 H 100 Respiratory Rate 22 H 20 Blood Pressure 149/64 H Pulse Oximetry 99 94 Oxygen Delivery Room Air Fraction of Inspired Oxygen 12/04/24 14:00 12/04/24 16:00 12/04/24 16:00 Temperature 98.2 F Pulse Rate 108 H 86 100 Respiratory Rate 20 Blood Pressure 114/54 L Pulse Oximetry 94 Oxygen Delivery Fraction of Inspired Oxygen 12/04/24 16:00 12/04/24 18:00 12/04/24 20:00 Temperature 98.1 F Pulse Rate 100 105 H 104 H Respiratory Rate 20 20 Blood Pressure 130/87 Pulse Oximetry 94 98 Oxygen Delivery Room Air Fraction of Inspired Oxygen 12/04/24 20:00 12/04/24 20:11 12/04/24 21:09 Temperature Pulse Rate 112 H 75 105 H Respiratory Rate Blood Pressure Pulse Oximetry 96 Oxygen Delivery Room Air Fraction of Inspired Oxygen 21 12/04/24 22:00 12/04/24 23:48 12/05/24 00:00 Temperature 97.9 F Pulse Rate 96 92 86 Respiratory Rate 20 Blood Pressure 131/74 Pulse Oximetry 100 Oxygen Delivery Fraction of Inspired Oxygen 12/05/24 02:00 12/05/24 04:00 12/05/24 04:00 Temperature 97.8 F Pulse Rate 91 91 96 Respiratory Rate 20 Blood Pressure 130/64 Pulse Oximetry 96 Oxygen Delivery Fraction of Inspired Oxygen 12/05/24 06:00 12/05/24 08:00 Temperature 98.1 F Pulse Rate 98 101 H Respiratory Rate 16 Blood Pressure 114/70 Pulse Oximetry 98 Oxygen Delivery Fraction of Inspired Oxygen Intake/Output Intake/Output: Intake & Output 12/02/24 12/03/24 12/04/24 12/05/24 23:59 23:59 23:59 23:59 Intake Total 970.0 194.2 Output Total 550 350 Balance 420.0 -155.8 Meds/Results Medications: Active Medications Generic Name Dose Route Start Last Admin Trade Name Freq PRN Reason Stop Dose Admin Acetaminophen 650 mg 12/03/24 20:19 Acetaminophen 325 Mg Tablet PO Q4H PRN Mild Pain (1-3) or Fever Clopidogrel Bisulfate 75 mg 12/04/24 09:00 12/04/24 09:13 Clopidogrel Bisulfate 75 Mg Tablet PO 75 mg DAILY NEHAL Administration Cyanocobalamin 500 mcg 12/04/24 09:00 12/04/24 09:13 Cyanocobalamin 500 Mcg Tablet PO 500 mcg DAILY NEHAL Administration Folic Acid 1 mg 12/04/24 09:00 12/04/24 09:13 Folic Acid 1 Mg Tablet PO 1 mg DAILY NEHAL Administration Furosemide 20 mg 12/05/24 09:00 Furosemide 20 Mg Tablet PO DAILY NEHAL Heparin Sodium (Porcine) 5,500 units 12/03/24 19:46 Heparin Sodium 5,000 Units/Ml Vial IV PUSH PRN PRN aPTT less than 55 seconds Heparin Sodium (Porcine) 3,000 units 12/03/24 19:46 Heparin Sodium 5,000 Units/Ml Vial IV PUSH PRN PRN aPTT 55 - 70 seconds Heparin Sodium/Dextrose 25,000 units in 250 mls @ 10 mls/hr 12/03/24 20:30 12/05/24 05:43 Heparin Sodium/D5w 100 Units/Ml IV CONT 1,000 units/hr .Q24H NEHAL 10 mls/hr Protocol Administration 1,000 UNITS/HR Levothyroxine Sodium 88 mcg 12/04/24 06:30 12/05/24 06:24 Levothyroxine Sodium 88 Mcg Tablet PO 88 mcg DAILY@0630 NEHAL Administration Metoprolol Tartrate 5 mg 12/03/24 19:47 Metoprolol Tartrate Inj 5 Mg/5 Ml Vial IV PUSH Q5M PRN Afib RVR HR >110 Metoprolol Tartrate 25 mg 12/04/24 09:00 12/04/24 21:09 Metoprolol Tartrate 25 Mg Tablet PO 25 mg Q12HR NEHAL Administration Ondansetron HCl 4 mg 12/03/24 20:19 Ondansetron Inj 4 Mg/2 Ml Vial IV PUSH Q4H PRN Nausea Perflutren Lipid Microsphere 0 ml 12/03/24 20:19 Perflutren Lipid Microspheres 1.5 Ml Vial Diluted To 10 Ml Total Volume IV PUSH 12/06/24 20:20 ONCE PRN adequate visualization Protocol Rosuvastatin Calcium 10 mg 12/04/24 09:00 Rosuvastatin 10 Mg Tablet PO On Hold: 12/04/24 09:00 DAILY [facility] Sertraline HCl 50 mg 12/04/24 09:00 12/04/24 09:13 Sertraline Hcl 50 Mg Tablet PO 50 mg DAILY NEHAL Administration Radiology Results: ITS Impressions Chest X-Ray 12/03/24 18:13 IMPRESSION: 1. No acute cardiopulmonary findings given portable technique. Chest CTA 12/03/24 19:36 IMPRESSION: 1. Bilateral pulmonary embolism, moderate thrombus burden. Venous Doppler Study 12/03/24 19:56 IMPRESSION: 1. No DVT either leg. Labs Labs: Laboratory Results - last 24 hr 12/04/24 12/04/24 12/05/24 10:58 17:47 00:55 WBC 7.1 RBC 2.64 L Hgb 10.3 L Hct 32.2 L MCV 122.0 H MCH 39.0 H MCHC 32.0 RDW 14.8 H Plt Count 256 MPV 10.2 Immature Gran % (Auto) 0.8 H Neut % (Auto) 70.1 Lymph % (Auto) 17.5 L [place] % (Auto) 9.0 H Eos % (Auto) 2.0 Baso % (Auto) 0.6 Lymph # (Auto) 1.25 [place] # (Auto) 0.6 Eos # (Auto) 0.1 Baso # (Auto) 0.0 Abs Immat Gran (auto) 0.06 H Absolute Neuts (auto) 5.0 Absolute Nucleated RBC 0.000 Band Neutrophils % Not Reportable Nucleated RBC % 0.0 Platelet Estimate Adequate Hypochromasia 1+ Ovalocytes 1+ Schistocytes None seen APTT 110.2 H 76.5 H 82.6 H Sodium 131 L 130 L Potassium 4.0 4.2 Chloride 99 100 Carbon Dioxide 26 22 Anion Gap 6 8 BUN 32 H 33 H Creatinine 1.45 H 1.41 H Estim Creat Clear Calc 26 27 Estimated GFR 34 L 35 L Glucose 109 94 Calcium 8.2 L 8.4 Magnesium 2.4 H Total Bilirubin 1.3 1.4 H AST 97 H 139 H ALT 78 H 112 H Alkaline Phosphatase 117 134 H Total Protein 6.2 L 6.5 Albumin 3.2 L 3.5 12/05/24 05:05 WBC RBC Hgb Hct MCV MCH MCHC RDW Plt Count MPV Immature Gran % (Auto) Neut % (Auto) Lymph % (Auto) [place] % (Auto) Eos % (Auto) Baso % (Auto) Lymph # (Auto) [place] # (Auto) Eos # (Auto) Baso # (Auto) Abs Immat Gran (auto) Absolute Neuts (auto) Absolute Nucleated RBC Band Neutrophils % Nucleated RBC % Platelet Estimate Hypochromasia Ovalocytes Schistocytes APTT 103.9 H Sodium Potassium Chloride Carbon Dioxide Anion Gap BUN Creatinine Estim Creat Clear Calc Estimated GFR Glucose Calcium Magnesium Total Bilirubin AST ALT Alkaline Phosphatase Total Protein Albumin
[2024-12-05] MEDS: CLOPIDOGREL BISULFATE 75 MG TABLET PO (09:31)
[2024-12-05] MEDS: FUROSEMIDE 20 MG TABLET PO (09:31)
[2024-12-05] MEDS: CYANOCOBALAMIN 500 MCG TABLET PO (09:31)
[2024-12-05] MEDS: FOLIC ACID 1 MG TABLET PO (09:31)
[2024-12-05] MEDS: METOPROLOL TARTRATE 12.5 MG TABLET 37.5 MG PO ×2 (09:31→21:12)
[2024-12-05] MEDS: SERTRALINE HCL 50 MG TABLET PO (09:31)
[2024-12-05 10:07] LABS: Alanine Aminotransferase 110 U/L (6-35); Albumin Level 3.2 g/dL (3.5-5.1); Alkaline Phosphatase 138 U/L (38-126); Aspartate Amino Transferase 164 U/L (14-36); Bilirubin,Total 1.2 mg/dL (0.2-1.3); Total Protein 6.3 g/dL (6.3-8.2)
--- NOTE | 2024-12-05 14:54 | P.PNIM_ITS ---
Progress Note: A&P Assessment and Plan (1) Bilateral pulmonary embolism: Code(s): I26.99 - Other pulmonary embolism without acute cor pulmonale Status: Acute Assessment and Plan: Patient presents with left leg pain and edema. LE venous doppler negative for DVT. Resolving LLE DVT? CTA chest showing bilateral PE with moderate thrombus burden. Echo as below. Heparin drip started per protocol. Patient does follow with Dr. Gutierrez as outpatient - consult hematology. Stable and remains on room air. Plan to start patient on Eliquis tonight and follow-up as outpatient with her primary oncologist. (2) Paroxysmal atrial fibrillation with RVR: Code(s): I48.0 - Paroxysmal atrial fibrillation Status: Acute Assessment and Plan: Patient presents with leg pain and found to have acute onset AFib RVR likely due to heart strain from acute PE. TSH normal. Serial troponins are negative x2. BNP 4790. [id number] 5. Echo showing EF 65-70% with diastolic dysfunction, Biatrial enlargement and mild pulm HTN. Cardiology consulted. Given IV metoprolol and 1 L IV fluid infusion at 150 mL an hour and HR improved. Oral metoprolol 25mg Q12H started with good rate control. Metoprolol dose advanced today. Currently On Heparin drip. Change to Eliquis tonight. Monitor on tele (3) Acute kidney injury superimposed on stage 3b chronic kidney disease: Code(s): N17.9 - Acute kidney failure, unspecified; N18.32 - Chronic kidney disease, stage 3b Status: Acute Assessment and Plan: Patient has CKD stage IIIB with baseline Cr 1.1-1.3. Concern for COLLINS secondary to hypoperfusion from AFib RVR. Cr trending down 167 -> 1.45 -> 1.41 Avoid nephrotoxic medications. Follow (4) Acute hyponatremia: Code(s): E87.1 - Hypo-osmolality and hyponatremia Status: Acute Assessment and Plan: Sodium 130 and about the same on repeat. Eating well. Will check urine studies. Follow (5) Transaminitis: Code(s): R74.01 - Elevation of levels of liver transaminase levels Status: Acute Assessment and Plan: With transaminitis with AST up to 164 and ALT 112. AP mildly elevated and tBili was 1.6 but normal now. Abd US showing fatty liver. Hepatitis panel pending Likely secondary to hepatic congestion? Lasix started. Avoid hepatotoxic medications. Hold Crestor until LFTs improve (6) Acute on chronic anemia: Code(s): D64.9 - Anemia, unspecified Status: Acute Assessment and Plan: Patient with a macrocytosis anemia. Hgb stable in the 10-11 range here. Hematology consulted. B12 added. (7) Hypothyroidism: Qualifiers: Hypothyroidism type: unspecified Qualified Code(s): E03.9 - Hypothyroidism, unspecified Code(s): E03.9 - Hypothyroidism, unspecified Status: Acute Assessment and Plan: TSH normal. Continue levothyroxine (8) PAD (peripheral artery disease): Code(s): I73.9 - Peripheral vascular disease, unspecified Status: Acute Assessment and Plan: Patient has a hx of multiple LE arterial stent placement. She wsa on ASA and Plavix on admission. ASA stopped. Contnue Plavix (9) Myelodysplasia (myelodysplastic syndrome): Code(s): D46.9 - Myelodysplastic syndrome, unspecified Status: Acute Assessment and Plan: Patient with JAK2 mutation. Follows with hematolgy as outpatient. 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 Feels well today. No other issues overnight. No Cp or SOB. No n/v. Exam Narrative: AF 97.8 117/59 91 18 97% ra Gen - NARD Chest - left base crackles o/w clear. nml RR CV - RRR S1/S2. tele showing AFib with RVR at times and PVCs Abd - Soft, NT/ND, Positive BS Ext - improved left LE edema. Neuro - Alert and oriented except year () Psych - Nml mood and affect Skin - Warm and dry Objective Data Vital Signs Vital Signs: Vital Signs - 24 hr 12/04/24 16:00 12/04/24 16:00 12/04/24 16:00 Temperature 98.2 F Pulse Rate 86 100 100 Respiratory Rate 20 20 Blood Pressure 114/54 L Pulse Oximetry 94 94 Oxygen Delivery Room Air Fraction of Inspired Oxygen 12/04/24 18:00 12/04/24 20:00 12/04/24 20:00 Temperature 98.1 F Pulse Rate 105 H 104 H 112 H Respiratory Rate 20 Blood Pressure 130/87 Pulse Oximetry 98 Oxygen Delivery Fraction of Inspired Oxygen 12/04/24 20:11 12/04/24 21:09 12/04/24 22:00 Temperature Pulse Rate 75 105 H 96 Respiratory Rate Blood Pressure Pulse Oximetry 96 Oxygen Delivery Room Air Fraction of Inspired Oxygen 21 12/04/24 23:48 12/05/24 00:00 12/05/24 02:00 Temperature 97.9 F Pulse Rate 92 86 91 Respiratory Rate 20 Blood Pressure 131/74 Pulse Oximetry 100 Oxygen Delivery Fraction of Inspired Oxygen 12/05/24 04:00 12/05/24 04:00 12/05/24 06:00 Temperature 97.8 F Pulse Rate 91 96 98 Respiratory Rate 20 Blood Pressure 130/64 Pulse Oximetry 96 Oxygen Delivery Fraction of Inspired Oxygen 12/05/24 08:00 12/05/24 08:00 12/05/24 09:31 Temperature 98.1 F Pulse Rate 101 H 96 108 H Respiratory Rate 16 Blood Pressure 114/70 Pulse Oximetry 98 Oxygen Delivery Fraction of Inspired Oxygen 12/05/24 10:00 12/05/24 11:37 Temperature 97.8 F Pulse Rate 91 91 Respiratory Rate 18 Blood Pressure 117/59 L Pulse Oximetry 97 Oxygen Delivery Fraction of Inspired Oxygen Intake/Output Intake/Output: Intake & Output 12/02/24 12/03/24 12/04/24 12/05/24 23:59 23:59 23:59 23:59 Intake Total 970.0 674.2 Output Total 550 350 Balance 420.0 324.2 Meds/Results Medications: Active Medications Generic Name Dose Route Start Last Admin Trade Name Freq PRN Reason Stop Dose Admin Acetaminophen 650 mg 12/03/24 20:19 Acetaminophen 325 Mg Tablet PO Q4H PRN Mild Pain (1-3) or Fever Clopidogrel Bisulfate 75 mg 12/04/24 09:00 12/05/24 09:31 Clopidogrel Bisulfate 75 Mg Tablet PO 75 mg DAILY NEHAL Administration Cyanocobalamin 500 mcg 12/04/24 09:00 12/05/24 09:31 Cyanocobalamin 500 Mcg Tablet PO 500 mcg DAILY NEHAL Administration Folic Acid 1 mg 12/04/24 09:00 12/05/24 09:31 Folic Acid 1 Mg Tablet PO 1 mg DAILY NEHAL Administration Furosemide 20 mg 12/05/24 09:00 12/05/24 09:31 Furosemide 20 Mg Tablet PO 20 mg DAILY NEHAL Administration Heparin Sodium (Porcine) 5,500 units 12/03/24 19:46 Heparin Sodium 5,000 Units/Ml Vial IV PUSH PRN PRN aPTT less than 55 seconds Heparin Sodium (Porcine) 3,000 units 12/03/24 19:46 Heparin Sodium 5,000 Units/Ml Vial IV PUSH PRN PRN aPTT 55 - 70 seconds Heparin Sodium/Dextrose 25,000 units in 250 mls @ 10 mls/hr 12/03/24 20:30 12/05/24 05:43 Heparin Sodium/D5w 100 Units/Ml IV CONT 1,000 units/hr .Q24H NEHAL 10 mls/hr Protocol Administration 1,000 UNITS/HR Levothyroxine Sodium 88 mcg 12/04/24 06:30 12/05/24 06:24 Levothyroxine Sodium 88 Mcg Tablet PO 88 mcg DAILY@0630 NEHAL Administration Metoprolol Tartrate 5 mg 12/03/24 19:47 Metoprolol Tartrate Inj 5 Mg/5 Ml Vial IV PUSH Q5M PRN Afib RVR HR >110 Metoprolol Tartrate 37.5 mg 12/05/24 09:00 12/05/24 09:31 Metoprolol Tartrate 12.5 Mg Tablet PO 37.5 mg Q12HR NEHAL Administration Ondansetron HCl 4 mg 12/03/24 20:19 Ondansetron Inj 4 Mg/2 Ml Vial IV PUSH Q4H PRN Nausea Perflutren Lipid Microsphere 0 ml 12/03/24 20:19 Perflutren Lipid Microspheres 1.5 Ml Vial Diluted To 10 Ml Total Volume IV PUSH 12/06/24 20:20 ONCE PRN adequate visualization Protocol Rosuvastatin Calcium 10 mg 12/04/24 09:00 Rosuvastatin 10 Mg Tablet PO On Hold: 12/04/24 09:00 DAILY [facility] Sertraline HCl 50 mg 12/04/24 09:00 12/05/24 09:31 Sertraline Hcl 50 Mg Tablet PO 50 mg DAILY NEHAL Administration Radiology Results: ITS Impressions Chest X-Ray 12/03/24 18:13 IMPRESSION: 1. No acute cardiopulmonary findings given portable technique. Chest CTA 12/03/24 19:36 IMPRESSION: 1. Bilateral pulmonary embolism, moderate thrombus burden. Venous Doppler Study 12/03/24 19:56 IMPRESSION: 1. No DVT either leg. Labs Labs: Laboratory Results - last 24 hr 12/04/24 12/05/24 12/05/24 17:47 00:55 05:05 WBC 7.1 RBC 2.64 L Hgb 10.3 L Hct 32.2 L MCV 122.0 H MCH 39.0 H MCHC 32.0 RDW 14.8 H Plt Count 256 MPV 10.2 Immature Gran % (Auto) 0.8 H Neut % (Auto) 70.1 Lymph % (Auto) 17.[address] [place] % (Auto) 9.0 H Eos % (Auto) 2.0 Baso % (Auto) 0.6 Lymph # (Auto) 1.25 [place] # (Auto) 0.6 Eos # (Auto) 0.1 Baso # (Auto) 0.0 Abs Immat Gran (auto) 0.06 H Absolute Neuts (auto) 5.0 Absolute Nucleated RBC 0.000 Band Neutrophils % Not Reportable Nucleated RBC % 0.0 Platelet Estimate Adequate Hypochromasia 1+ Ovalocytes 1+ Schistocytes None seen APTT 76.5 H 82.6 H 103.9 H Sodium 130 L Potassium 4.2 Chloride 100 Carbon Dioxide 22 Anion Gap 8 BUN 33 H Creatinine 1.41 H Estim Creat Clear Calc 27 Estimated GFR 35 L Glucose 94 Calcium 8.4 Magnesium 2.4 H Total Bilirubin 1.4 H 1.2 Direct Bilirubin 0.0 AST 139 H 164 H ALT 112 H 110 H Alkaline Phosphatase 134 H 138 H Total Protein 6.5 6.3 Albumin 3.5 3.2 L
--- NOTE | 2024-12-05 17:27 | WPDONCCN ---
Assessment and Plan Assessment and plan (1) Bilateral pulmonary embolism: Code(s): I26.99 - Other pulmonary embolism without acute cor pulmonale Status: Acute Assessment and Plan: This is the 89-year-old female with history of myeloproliferative disorder who has been on hydroxyurea for JAK2 mutation positive thrombocytosis came into the hospital with right leg pain. She denies any injury and recent trauma. She has no previous history of thromboembolic events other than peripheral vascular disease for which she had bilateral lower extremity stent placement 3 years ago. She has been taking Plavix and aspirin. Doppler studies showed no evidence of DVT but CTA chest showed bilateral pulmonary embolism with moderate thrombus burden. Would recommend discharging patient on Eliquis 10 mg twice a day for 1 week then 5 mg twice a day. I would suggest discontinuation of aspirin and continue Plavix until evaluated by the vascular surgeon. She will also follow up with Dr. Escamilla. (2) Myeloproliferative disorder: Code(s): D47.1 - Chronic myeloproliferative disease Status: Acute Assessment and Plan: Patient has JAK2 mutation positive essential thrombocythemia. Platelet counts are normal. She is slightly more anemic. Hydroxyurea has been placed on hold due to tiredness and fatigue. Other labs showed slightly low vitamin B12 of 368 and kidney function of about 35%. Her anemia could be secondary to renal insufficiency along with vitamin B12 deficiency. I will also check iron studies. I would start her on B12 1 mg daily on discharge. She will follow-up with her oncologist. HPI Data of Consult Date/Time: 12/05/24 17:27 Requesting Physician: Zuleima Dhillon DO Primary Care Provider: Daniel Hoffman DO Consult Narrative Narrative: Kayla Tierney is a 89 year old female with history of myeloproliferative disorder with JAK2 mutation positive thrombocytosis, iron deficiency anemia and peripheral vascular disease status post bilateral lower extremity stent placement 3 years ago has been on Plavix and aspirin came into the hospital with the right lower extremity pain and swelling. She has no previous history of thromboembolic events. She denies any recent injury or fall. Patient is not good historian and history was obtained after discussion with the daughter. Doppler studies was performed that showed no DVT in either leg. Chest CTA showed bilateral pulmonary embolism with moderate thrombus burden. She denies any chest pain and shortness of breath. She was on hydroxyurea but there was discontinued 2 weeks ago as she was feeling tired and fatigued. Her labs showed platelet count of 20 in 56,000 with mild anemia and hemoglobin is 10.3. No bleeding. No other new complaints Review of Systems Review of Systems: Twelve point review of system was reviewed [facility] Past Medical History Medical History (Updated 12/05/24 @ 17:30 by Giovani Montes De Oca MD) Spinal stenosis, lumbar region without neurogenic claudication CKD (chronic kidney disease) stage 3, GFR 30-59 ml/min B12 deficiency Essential thrombocytosis Vitamin D deficiency, unspecified Polycythemia vera Raudel 2 mutation Hyperglycemia Hypercholesterolemia Surgical History Surgical History (Updated 12/03/24 @ 22:00 by Zuleima Dhillon DO) History of laparoscopic appendectomy (~2019) Peripheral arterial disease with history of revascularization Family History Family History (Updated 12/03/24 @ 22:19 by Zuleima Dhillon DO) Sibling Family history of elevated blood lipids Carcinoma of colon Father Lung cancer Mother Breast cancer Social History Social History (Updated 12/04/24 @ 01:00 by Zuleima Dhillon DO) Social History: The patient reports that she lives with her of 70 years. She used to smoke a pack a per day for at least 30 years but quit smoking in 2004 according to nursing documentation. She denies history of alcohol use. She used to work in retail. She raised 2 daughters and 1 son. Code status: Full code [facility] power of immigration attorney: Lynne Pelayo Smoking packs per day: 1 Smoking cigarettes per day: 20.0 Years smoked: 32 Smoking pack-years: 32.00 Smoking status: Former smoker Tobacco type: cigarettes Second hand tobacco smoke exposure: No Smoking end date: 03/12/04 Additional smoking assessment comments: quit 30 years ago Alcohol intake: never Substance use: never Substance use type: does not use Lack of Transportation: No Lack of Food: Never True Current Housing: I Have Housing Concerned About Future Housing: No Difficulty Paying Gas/Electric Bills: No Difficulty Paying for Meds: No Currently Unemployed: YES Education: High School Diploma/GED Difficulty w/ Childcare or Family Care: No Living arrangements: with family Spiritual care concerns: No Meds Home Medications and Allergies Home Medications ?Medication ?Instructions ?Recorded ?Confirmed ?Type aspirin 81 mg tablet,delayed 81 mg PO DAILY 09/25/22 12/03/24 History release (Adult Aspirin Regimen) clopidogrel 75 mg tablet (Plavix) 75 mg PO DAILY 09/25/22 12/03/24 History sertraline 100 mg tablet See Rx Instructions .Route 02/11/24 12/03/24 Rx .COMPLEX #90 tabs levothyroxine 88 mcg tablet See Rx Instructions .Route 07/16/24 12/03/24 Rx .COMPLEX #90 tabs rosuvastatin 10 mg tablet See Rx Instructions .Route 10/14/24 12/03/24 Rx .COMPLEX #90 tabs cyanocobalamin (vitamin B-12) 500 500 mcg PO DAILY 12/03/24 12/03/24 History mcg tablet folic acid 1 mg tablet 1 mg PO DAILY 12/03/24 12/03/24 History Allergies Allergy/AdvReac Type Severity Reaction Status Date / Time No Known Allergies Allergy Verified 12/03/24 17:42 Vital Signs Vital Signs - 24 hr 12/04/24 18:00 12/04/24 20:00 12/04/24 20:00 Temperature 36.7 C Pulse Rate 105 H 104 H 112 H Respiratory Rate 20 Blood Pressure 130/87 Pulse Oximetry 98 Oxygen Delivery Fraction of Inspired Oxygen 12/04/24 20:11 12/04/24 21:09 12/04/24 22:00 Temperature Pulse Rate 75 105 H 96 Respiratory Rate Blood Pressure Pulse Oximetry 96 Oxygen Delivery Room Air Fraction of Inspired Oxygen 21 12/04/24 23:48 12/05/24 00:00 12/05/24 02:00 Temperature 36.6 C Pulse Rate 92 86 91 Respiratory Rate 20 Blood Pressure 131/74 Pulse Oximetry 100 Oxygen Delivery Fraction of Inspired Oxygen 12/05/24 04:00 12/05/24 04:00 12/05/24 06:00 Temperature 36.6 C Pulse Rate 91 96 98 Respiratory Rate 20 Blood Pressure 130/64 Pulse Oximetry 96 Oxygen Delivery Fraction of Inspired Oxygen 12/05/24 08:00 12/05/24 08:00 12/05/24 09:31 Temperature 36.7 C Pulse Rate 101 H 96 108 H Respiratory Rate 16 Blood Pressure 114/70 Pulse Oximetry 98 Oxygen Delivery Fraction of Inspired Oxygen 12/05/24 10:00 12/05/24 11:37 12/05/24 12:00 Temperature 36.6 C Pulse Rate 91 91 89 Respiratory Rate 18 Blood Pressure 117/59 L Pulse Oximetry 97 Oxygen Delivery Fraction of Inspired Oxygen 12/05/24 14:00 12/05/24 16:00 12/05/24 16:00 Temperature 36.9 C Pulse Rate 87 69 87 Respiratory Rate 20 Blood Pressure 125/60 Pulse Oximetry 100 Oxygen Delivery Fraction of Inspired Oxygen Exam Narrative: Lungs are clear to auscultation bilaterally Cardiovascular regular rate rhythm no murmurs Abdomen soft nontender nondistended Extremities some swelling in the right lower extremity Results Labs 12/05/24 00:55 12/05/24 00:55 Labs: Short CBC 12/05/24 Range/Units 00:55 WBC 7.1 (4.5-10.0) K/mm3 Hgb 10.3 L (12.0-15.0) g/dL Hct 32.2 L (37.0-47.0) % Plt Count 256 (150-375) k/mm3 BMP 12/05/24 00:55 Sodium 130 L Potassium 4.2 Chloride 100 Carbon Dioxide 22 BUN 33 H Creatinine 1.41 H Glucose 94 Calcium 8.4 Liver Function 12/05/24 12/05/24 Range/Units 00:55 05:05 Total Bilirubin 1.4 H 1.2 (0.2-1.3) mg/dL Direct Bilirubin 0.0 (0-0.3) mg/dL AST 139 H 164 H (14-36) U/L ALT 112 H 110 H (6-35) U/L Alkaline Phosphatase 134 H 138 H (38-126) U/L Albumin 3.5 3.2 L (3.5-5.1) g/dL
[2024-12-05 19:54] LABS: Iron 52 ug/dL (37-170)
[2024-12-05 20:03] LABS: Percent Iron Saturation 30 % (20-50)
[2024-12-05 20:30] LABS: Ferritin 428.00 ng/mL (11.1-264)
[2024-12-05] MEDS: APIXABAN 5 MG TABLET 10 MG PO (21:13)
[2024-12-05 21:22] LABS: Urea Random Urine 663 MG/DL
[2024-12-06] VITALS (8 sets, daily range): BP systolic 113–134; BP diastolic 51–67; PULSE 74–97; RESP 14–20; TEMP 36.4–37.1; O2SAT 92–99
[2024-12-06 05:26] LABS: Hematocrit 32.4 % (37.0-47.0); Hemoglobin 10.3 g/dL (12.0-15.0); Immature Granulocyte Percent A 0.6 % (0-0.5); Lymphocytes Absolute Auto 1.12 K/mm3 (0.9-3.2); Mean Corpuscular HGB Conc 31.8 g/dl (32-36); Mean Corpuscular Hemoglobin 38.1 pg (26-34); Mean Corpuscular Volume 120.0 fl (80-100); Nucleated Red Blood Cells Absolute Auto 0.000 K/mm3 (0.0-0.012); Nucleated Red Blood Cells Perc 0.0 % (0.0-0.2); Platelet Count Result 298 k/mm3 (150-375); Red Blood Count 2.70 M/mm3 (4.2-5.4); White Blood Count 6.3 K/mm3 (4.5-10.0)
[2024-12-06 05:39] LABS: Partial Thromboplastin Time 57.1 Seconds (22.3-36.8)
[2024-12-06 05:48] LABS: Anisocytosis 1+; Macrocytosis 1+ (NORMAL); Ovalocytes Occasional; Polychromasia Occasional; Schistocytes None Seen
[2024-12-06] MEDS: LEVOTHYROXINE SODIUM 88 MCG TABLET PO (05:53)
[2024-12-06 05:54] LABS: Alanine Aminotransferase 138 U/L (6-35); Albumin Level 3.3 g/dL (3.5-5.1); Alkaline Phosphatase 150 U/L (38-126); Anion Gap 9 mmol/L (4-12); Aspartate Amino Transferase 149 U/L (14-36); Bilirubin,Total 1.1 mg/dL (0.2-1.3); Blood Urea Nitrogen 29 mg/dL (7-17); Calcium 8.2 mg/dL (8.4-10.2); Carbon Dioxide 24 mmol/L (22-30); Chloride 98 mmol/L (98-107); Estimated CRCL calculation 29 ml/min; Estimated Glomerular Filt Rate 39; Glucose 90 mg/dL (65-110); Potassium 3.5 mmol/L (3.4-5.0); Sodium 131 mmol/L (137-145); Total Protein 6.5 g/dL (6.3-8.2)
[2024-12-06 06:14] LABS: Hepatitis B Surface Antigen Negative (Negative)
[2024-12-06 06:19] LABS: HAV RESULT Negative (Negative); Hepatitis B Core IgM Result Negative (Negative)
--- NOTE | 2024-12-06 08:44 | PM.PNCARD ---
Progress Note: A&P Assessment and Plan (1) Paroxysmal atrial fibrillation with RVR: Code(s): I48.0 - Paroxysmal atrial fibrillation Status: Acute Assessment and Plan: Asymptomatic. Probably due to pulm embolism. [id number] 5. Rate is controlled on Metoprolol Tartate 37.5 mg BID. On Eliquis (2) Bilateral pulmonary embolism: Code(s): I26.99 - Other pulmonary embolism without acute cor pulmonale Status: Acute Assessment and Plan: Probably originated in leg but progressed to lungs. On Eliquis high dose for 1 week then regular dosing. Needs 6 months of anticoagulation. (3) Hyperlipidemia: Code(s): E78.5 - Hyperlipidemia, unspecified Status: Acute Assessment and Plan: On Rosuvastatin. (4) PAD (peripheral artery disease): Code(s): I73.9 - Peripheral vascular disease, unspecified Status: Acute Assessment and Plan: On Clopidogrel. (5) Transaminitis: Code(s): R74.01 - Elevation of levels of liver transaminase levels Status: Acute Assessment and Plan: Could be liver congestion but she also has fatty liver and cholelithiasis. On Lasix 20 mg PO daily to improve congestion. Monitor. Subjective Date/time seen: 12/06/24 08:44 Interval history: Denies chest pain or sob. Exam Const: General: cooperative, healthy appearing and comfortable Orientation/consciousness: oriented to person, oriented to place and oriented to time Resp: Auscultation: clear to auscultation bilaterally, no crackles, no rales, no rhonchi and no wheezes Cardio: Rate: regular rate Rhythm: abnormal rhythm Heart sounds: no murmurs Peripheral pulses: dorsalis pedis present Neuro: General: oriented to person, oriented to place and oriented to time Extrem: Right lower extremity: no edema Left lower extremity: edema Other: Mild left leg edema Objective Data Vital Signs Vital Signs: Vital Signs - 24 hr 12/05/24 09:31 12/05/24 10:00 12/05/24 11:37 Temperature 97.8 F Pulse Rate 108 H 91 91 Respiratory Rate 18 Blood Pressure 117/59 L Pulse Oximetry 97 Oxygen Delivery 12/05/24 12:00 12/05/24 14:00 12/05/24 16:00 Temperature 98.5 F Pulse Rate 89 87 69 Respiratory Rate 20 Blood Pressure 125/60 Pulse Oximetry 100 Oxygen Delivery 12/05/24 16:00 12/05/24 18:00 12/05/24 20:00 Temperature 97.8 F Pulse Rate 87 90 90 Respiratory Rate 18 Blood Pressure 139/48 L Pulse Oximetry 100 Oxygen Delivery 12/05/24 20:00 12/05/24 20:45 12/05/24 21:12 Temperature Pulse Rate 95 102 H Respiratory Rate Blood Pressure Pulse Oximetry Oxygen Delivery Room Air 12/05/24 22:00 12/06/24 00:00 12/06/24 00:00 Temperature 97.5 F L Pulse Rate 89 92 Respiratory Rate 19 Blood Pressure 134/56 L Pulse Oximetry 99 Oxygen Delivery Room Air 12/06/24 00:00 12/06/24 02:00 12/06/24 04:00 Temperature Pulse Rate 86 90 87 Respiratory Rate 20 Blood Pressure 113/51 L Pulse Oximetry 92 Oxygen Delivery 12/06/24 04:00 12/06/24 04:00 12/06/24 06:00 Temperature Pulse Rate 87 92 Respiratory Rate Blood Pressure Pulse Oximetry Oxygen Delivery Room Air 12/06/24 08:00 Temperature 98.2 F Pulse Rate 80 Respiratory Rate 16 Blood Pressure 133/55 L Pulse Oximetry 99 Oxygen Delivery Intake/Output Intake/Output: Intake & Output 12/03/24 12/04/24 12/05/24 12/06/24 23:59 23:59 23:59 23:59 Intake Total 970.0 928.7 50 Output Total 550 875 600 Balance 420.0 53.7 -550 Meds/Results Medications: Active Medications Generic Name Dose Route Start Last Admin Trade Name Huang PRN Reason Stop Dose Admin Acetaminophen 650 mg 12/03/24 20:19 Acetaminophen 325 Mg Tablet PO Q4H PRN Mild Pain (1-3) or Fever Apixaban 10 mg 12/05/24 21:00 12/05/24 21:13 Apixaban 5 Mg Tablet PO 12/12/24 09:01 10 mg Q12HR NEHAL Administration Apixaban 5 mg 12/12/24 21:00 Apixaban 5 Mg Tablet PO Q12HR NEHAL Clopidogrel Bisulfate 75 mg 12/04/24 09:00 12/05/24 09:31 Clopidogrel Bisulfate 75 Mg Tablet PO 75 mg DAILY NEHAL Administration Cyanocobalamin 500 mcg 12/04/24 09:00 12/05/24 09:31 Cyanocobalamin 500 Mcg Tablet PO 500 mcg DAILY NEHAL Administration Cyanocobalamin 1,000 mcg 12/06/24 09:00 Cyanocobalamin 1,000 Mcg Tablet PO QAM NEHAL Folic Acid 1 mg 12/04/24 09:00 12/05/24 09:31 Folic Acid 1 Mg Tablet PO 1 mg DAILY NEHAL Administration Furosemide 20 mg 12/05/24 09:00 12/05/24 09:31 Furosemide 20 Mg Tablet PO 20 mg DAILY NEHAL Administration Levothyroxine Sodium 88 mcg 12/04/24 06:30 12/06/24 05:53 Levothyroxine Sodium 88 Mcg Tablet PO 88 mcg DAILY@0630 NEHAL Administration Metoprolol Tartrate 5 mg 12/03/24 19:47 Metoprolol Tartrate Inj 5 Mg/5 Ml Vial IV PUSH Q5M PRN Afib RVR HR >110 Metoprolol Tartrate 37.5 mg 12/05/24 09:00 12/05/24 21:12 Metoprolol Tartrate 12.5 Mg Tablet PO 37.5 mg Q12HR NEHAL Administration Ondansetron HCl 4 mg 12/03/24 20:19 Ondansetron Inj 4 Mg/2 Ml Vial IV PUSH Q4H PRN Nausea Perflutren Lipid Microsphere 0 ml 12/03/24 20:19 Perflutren Lipid Microspheres 1.5 Ml Vial Diluted To 10 Ml Total Volume IV PUSH 12/06/24 20:20 ONCE PRN adequate visualization Protocol Rosuvastatin Calcium 10 mg 12/04/24 09:00 Rosuvastatin 10 Mg Tablet PO On Hold: 12/04/24 09:00 DAILY NEHAL Sertraline HCl 50 mg 12/04/24 09:00 12/05/24 09:31 Sertraline Hcl 50 Mg Tablet PO 50 mg DAILY NEHAL Administration Radiology Results: ITS Impressions Chest X-Ray 12/03/24 18:13 IMPRESSION: 1. No acute cardiopulmonary findings given portable technique. Chest CTA 12/03/24 19:36 IMPRESSION: 1. Bilateral pulmonary embolism, moderate thrombus burden. Venous Doppler Study 12/03/24 19:56 IMPRESSION: 1. No DVT either leg. Upper Quadrant Ultrasound 12/05/24 15:14 IMPRESSION: 1: Cholelithiasis. 2: Fatty infiltration of the liver. Labs Labs: Laboratory Results - last 24 hr 12/05/24 12/05/24 12/05/24 00:52 05:05 21:03 WBC RBC Hgb Hct MCV MCH MCHC RDW Plt Count MPV Immature Gran % (Auto) Neut % (Auto) Lymph % (Auto) [place] % (Auto) Eos % (Auto) Baso % (Auto) Lymph # (Auto) [place] # (Auto) Eos # (Auto) Baso # (Auto) Abs Immat Gran (auto) Absolute Neuts (auto) Absolute Nucleated RBC Band Neutrophils % Nucleated RBC % Platelet Estimate Polychromasia Anisocytosis Macrocytosis Ovalocytes Schistocytes APTT Sodium Potassium Chloride Carbon Dioxide Anion Gap BUN Creatinine Estim Creat Clear Calc Estimated GFR Glucose Calcium Iron 52 TIBC 176 L % Saturation 30 Ferritin 428.00 H Total Bilirubin 1.2 Direct Bilirubin 0.0 AST 164 H ALT 110 H Alkaline Phosphatase 138 H Total Protein 6.3 Albumin 3.2 L Ur Random Sodium 55 Ur Random Urea 663 Urine Creatinine 64.6 Hepatitis A IgM Ab Hep Bs Antigen Hep B Core IgM Ab Hepatitis C Ab Screen 12/06/24 05:16 WBC 6.3 RBC 2.70 L Hgb 10.3 L Hct 32.4 L MCV 120.0 H MCH 38.1 H MCHC 31.8 L RDW 14.6 H Plt Count 298 MPV 10.4 Immature Gran % (Auto) 0.6 H Neut % (Auto) 70.9 Lymph % (Auto) 17.7 L [place] % (Auto) 8.1 Eos % (Auto) 2.2 Baso % (Auto) 0.5 Lymph # (Auto) 1.12 [place] # (Auto) 0.5 Eos # (Auto) 0.1 Baso # (Auto) 0.0 Abs Immat Gran (auto) 0.04 H Absolute Neuts (auto) 4.5 Absolute Nucleated RBC 0.000 Band Neutrophils % Not Reportable Nucleated RBC % 0.0 Platelet Estimate Adequate Polychromasia Occasional Anisocytosis 1+ Macrocytosis 1+ Ovalocytes Occasional Schistocytes None seen APTT 57.1 H Sodium 131 L Potassium 3.5 Chloride 98 Carbon Dioxide 24 Anion Gap 9 BUN 29 H Creatinine 1.29 H Estim Creat Clear Calc 29 Estimated GFR 39 L Glucose 90 Calcium 8.2 L Iron TIBC % Saturation Ferritin Total Bilirubin 1.1 Direct Bilirubin AST 149 H ALT 138 H Alkaline Phosphatase 150 H Total Protein 6.5 Albumin 3.3 L Ur Random Sodium Ur Random Urea Urine Creatinine Hepatitis A IgM Ab Negative Hep Bs Antigen Negative Hep B Core IgM Ab Negative Hepatitis C Ab Screen Negative
[2024-12-06] MEDS: APIXABAN 5 MG TABLET 10 MG PO (08:59)
[2024-12-06] MEDS: METOPROLOL TARTRATE 12.5 MG TABLET 37.5 MG PO (08:59)
[2024-12-06] MEDS: SERTRALINE HCL 50 MG TABLET PO (08:59)
[2024-12-06] MEDS: FOLIC ACID 1 MG TABLET PO (08:59)
[2024-12-06] MEDS: CLOPIDOGREL BISULFATE 75 MG TABLET PO (08:59)
[2024-12-06] MEDS: FUROSEMIDE 20 MG TABLET PO (08:59)
[2024-12-06] MEDS: CYANOCOBALAMIN 1,000 MCG TABLET 1000 MCG PO (08:59)
[2024-12-06] MEDS: CYANOCOBALAMIN 500 MCG TABLET PO (08:59)
--- NOTE | 2024-12-06 10:29 | P.DS_ITS ---
DS: Admitting Diagnosis Discharge Date 12/06/24 Admitting Diagnosis Leg pain DS: Discharge Diagnosis Discharge Diagnosis (1) Bilateral pulmonary embolism: Code(s): I26.99 - Other pulmonary embolism without acute cor pulmonale Status: Acute (2) Paroxysmal atrial fibrillation with RVR: Code(s): I48.0 - Paroxysmal atrial fibrillation Status: Acute (3) Acute kidney injury superimposed on stage 3b chronic kidney disease: Code(s): N17.9 - Acute kidney failure, unspecified; N18.32 - Chronic kidney disease, stage 3b Status: Acute (4) Acute hyponatremia: Code(s): E87.1 - Hypo-osmolality and hyponatremia Status: Acute (5) Transaminitis: Code(s): R74.01 - Elevation of levels of liver transaminase levels Status: Acute (6) Acute on chronic anemia: Code(s): D64.9 - Anemia, unspecified Status: Acute (7) Hypothyroidism: Qualifiers: Hypothyroidism type: unspecified Qualified Code(s): E03.9 - Hypothyroidism, unspecified Code(s): E03.9 - Hypothyroidism, unspecified Status: Acute (8) PAD (peripheral artery disease): Code(s): I73.9 - Peripheral vascular disease, unspecified Status: Acute (9) Myelodysplasia (myelodysplastic syndrome): Code(s): D46.9 - Myelodysplastic syndrome, unspecified Status: Acute DS: Summary Hospital Course Reason for hospitalization: 89yo female with JESSIE 2 mutation with primary thrombocytosis, iron deficiency anemia, megaloblastic anemia, PAD with lower extremity stents, carotid stenosis, HTN and hypothyroidism who presented to the ER with leg pain. Plesae see H&P for details. Hospital Course: Patient presents with left leg pain and edema. LE venous doppler negative for DVT. CTA chest showing bilateral PE with moderate thrombus burden. She had LLE edema so the source of the PE may have come from the LLE. Echo showing EF 65-70% with diastolic dysfunction, biatrial enlargement and mild pulm HTN. Heparin drip started per protocol. She remained stable on room air. Patient remained stable and was transitioned to Eliquis with plans for her to follow-up as outpatient with her primary assistant media buyer. Patient also found to have acute onset AFib RVR likely due to heart strain from acute PE. TSH normal. Serial troponins were negative x2. BNP 4790. [id number] 5. Cardiology consulted. She was given IV metoprolol and 1 L IV fluid and HR improved. Oral metoprolol started and dose increased to 37.5mg Q12h. Rate became better controlled. Heparin changed to Eliquis. Patient has CKD stage IIIB with baseline Cr 1.1-1.3. It was felt she had COLLINS secondary to hypoperfusion from AFib RVR and/or PE. Cr trended down to 1.3 and felt back to her baseline. Sodium 130 and about the same on repeat. Eating well. Will have this monitored as outpatient. Patient also with transaminitis with AST up to 164 and ALT 138. AP mildly elevated as well. TBili was 1.6 but normal now. Abd US showing fatty liver. TCK normal. Hepatitis panel negative. Likely secondary to hepatic congestion and oral Lasix started. [place] held. AST trended down. She remained asymptomatic from this. Patient with a m acrocytosis anemia. Hgb stable in the 10-11 range here. Patient with JAK2 mutation. Hematology consulted and appreciate their input. Patient does follow with Dr. Gutierrez as outpatient. TSH normal. We continued levothyroxine. Patient has a hx of multiple LE arterial stent placement. She was on ASA and Plavix on admission. Per hematology, plan to stop ASA and continue Plavix. She overall did well and feels much better. Patient is comfortable with discharge and having this issues monitored as outpatient. Discussed with Cardiology who felt okay for discharge with current metoprolol, Eliquis and L asix dosing. She has arin up ambulating. She overall did well and was able to be discharged home on 12/06/24. Discharge instructions discussed in detail including discharge medications and medication side effects. Status at Discharge Cognitive/behavioral status at discharge: stable Time Spent with Patient Time attestation: Total time spent providing and/or coordinating discharge services: 35 minutes Time spent: Greater than 30 minutes Exam Narrative: AF 98.2 133/55 97 16 99% ra Gen - NARD Chest - CTA bilaterally, nml RR CV - RRR S1/S2. tele showing AFib with controlled rate and a 2.7sec pause (cardiology was aware and felt okay for discharge on current meds) Abd - Soft, NT/ND, Positive BS Ext - improving left LE edema. Neuro - Alert and oriented x4 Psych - Nml mood and affect Skin - Warm and dry DS: Data Data Completed and Pending Labs on day of discharge: Labs from last 24 hours 12/06/24 12/05/24 12/05/24 05:16 21:03 00:52 WBC 6.3 RBC 2.70 L Hgb 10.3 L Hct 32.4 L MCV 120.0 H MCH 38.1 H MCHC 31.8 L RDW 14.6 H Plt Count 298 MPV 10.4 Immature Gran % (Auto) 0.6 H Neut % (Auto) 70.9 Lymph % (Auto) 17.7 L [place] % (Auto) 8.1 Eos % (Auto) 2.2 Baso % (Auto) 0.5 Lymph # (Auto) 1.12 [place] # (Auto) 0.5 Eos # (Auto) 0.1 Baso # (Auto) 0.0 Abs Immat Gran (auto) 0.04 H Absolute Neuts (auto) 4.5 Absolute Nucleated RBC 0.000 Band Neutrophils % Not Reportable Nucleated RBC % 0.0 Platelet Estimate Adequate Polychromasia Occasional Anisocytosis 1+ Macrocytosis 1+ Ovalocytes Occasional Schistocytes None seen APTT 57.1 H Sodium 131 L Potassium 3.5 Chloride 98 Carbon Dioxide 24 Anion Gap 9 BUN 29 H Creatinine 1.29 H Estim Creat Clear Calc 29 Estimated GFR 39 L Glucose 90 Calcium 8.2 L Iron 52 TIBC 176 L % Saturation 30 Ferritin 428.00 H Total Bilirubin 1.1 AST 149 H ALT 138 H Alkaline Phosphatase 150 H Total Protein 6.5 Albumin 3.3 L Ur Random Sodium 55 Ur Random Urea 663 Urine Creatinine 64.6 Hepatitis A IgM Ab Negative Hep Bs Antigen Negative Hep B Core IgM Ab Negative Hepatitis C Ab Screen Negative Discharge Plan Discharge Attending physician on discharge: Jonh Ricci Consulting providers: Giovani Montes De Oca; Selvin Galindo Discharging Clinician: Jonh Ricci Anticipated Discharge Date/Time: 12/06/24 10:54 Patient Disposition: Home Activity: as tolerated Diet: heart healthy Discharge Instructions: Take precautions to avoid falls. Rise slowly from a lying or sitting position. Pause before standing or walking. Contact your doctor or call 911 and come to the Emergency Room if you have any type of trauma, lightheadedness with standing or other worrisome symptoms. Avoid NSAIDs (ibuprofen, naproxen, Aleve). Tylenol is safe to take. Follow-up with your primary care provider in 1-2 weeks. Please call for appointment. Follow-up with Cardiology in 1 week. Please call for an appointment. Follow-up with Hematology in 3-4 weeks. Please call for an appointment. Thank you for using [facility] for your health care needs. Patient Instructions: Antibiotic Form, Heart Failure (GEN), Blood Thinners (GEN) Patient Language: Telugu Stand Alone Forms: General Discharge Information Follow-up/Referrals: Selvin Galindo DO [Physician, Cardiology] - Call for Appointment Daniel Hoffman DO [Primary Care Provider, Internal Medicine] - Call for Appo lidia Escamilla,James Robertson DO [Non-Staff, Hematology & Oncology] - Call for Appointment Discharge Medications: New furosemide 20 mg Tablet 20 mg PO DAILY Qty: 30 1RF cyanocobalamin (vitamin B-12) [Vitamin B-12] 1,000 mcg Tablet 1,000 mcg PO QAM Qty: 30 1RF metoprolol tartrate 37.5 mg tablet 37.5 mg PO Q12H Qty: 60 1RF Eliquis 5 mg Tablet 10 mg PO DIRECTED Qty: 88 0RF Rx Instructions: Take 10mg (2 tabs) every 12 hours through the morning of December 12 Decrease to 5mg (1 tab) every 12 hours starting in the evening of December 12 metoprolol tartrate 37.5 mg tablet 37.5 mg PO Q12H Qty: 60 1RF Continued clopidogrel [Plavix] 75 mg tablet 75 mg PO DAILY cyanocobalamin (vitamin B-12) 500 mcg tablet 500 mcg PO DAILY folic acid 1 mg tablet 1 mg PO DAILY sertraline 100 mg tablet See Rx Instructions .ROUTE .COMPLEX Qty: 90 1RF Dose Instruction: TAKE 1 TABLET BY MOUTH DAILY Rx Instructions: TAKE 1 TABLET BY MOUTH DAILY levothyroxine 88 mcg tablet See Rx Instructions .ROUTE .COMPLEX Qty: 90 3RF Dose Instruction: TAKE 1 TABLET BY MOUTH DAILY Rx Instructions: TAKE 1 TABLET BY MOUTH DAILY Held rosuvastatin 10 mg tablet See Rx Instructions .ROUTE .COMPLEX Qty: 90 0RF Hold Instructions: HOLD - resume when okay with your doctor Dose Instruction: TAKE 1 TABLET BY MOUTH DAILY Rx Instructions: TAKE 1 TABLET BY MOUTH DAILY Discontinued aspirin [Adult Aspirin Regimen] 81 mg tablet,delayed release (DR/EC) 81 mg PO DAILY Other Ambulatory Orders: Comprehensive Metabolic Panel (Routine) Timeframe: [id number] Location: Determined by Patient Ordered By: Jonh Ricci Date of admission: 12/03/24 20:19 Primary Care Provider: Daniel Hoffman Admitting Provider: Zuleima Dhillon Attending physician on admission: Zuleima Dhillon Condition: Stable Hospitalist MIPS Heart Failure (Exclusion) Patient has history of Heart Transplant or Left Ventricular Assistive Device?: No IF YES, STOP HERE Heart Failure (Qualifier) Patient has current or prior documentation of LVEF less than or equal to 40%, or mod/servere depressed LVSF?: No IF NO, STOP HERE
[2024-12-06 11:01] LABS: Creatine Kinase 32 U/L (30-135)
== END 2024-12-06 12:30 | disposition home or self-care (01) | DRG 176 ==
LOC: ANHED 19:04 → ANHIMU 20:54
PROVIDERS: Family Medicine; Internal Medicine Hematology & Oncology; Admitting Provider Internal Medicine; Emergency Provider Student in an Organized Health Care Education/Training Program; PCP Internal Medicine; Visit Provider Internal Medicine
DX: I26.99 Other pulmonary embolism without acute cor pulmonale (principal); N17.9 Acute kidney failure, unspecified; E87.1 Hypo-osmolality and hyponatremia; D47.1 Chronic myeloproliferative disease; N18.32 Chronic kidney disease, stage 3b; I48.0 Paroxysmal atrial fibrillation; E03.9 Hypothyroidism, unspecified; E78.00 Pure hypercholesterolemia, unspecified; D45 Polycythemia vera; E78.5 Hyperlipidemia, unspecified; I73.9 Peripheral vascular disease, unspecified; I65.29 Occlusion and stenosis of unspecified carotid artery; K76.0 Fatty (change of) liver, not elsewhere classified; K80.20 Calculus of gallbladder without cholecystitis without obstruction; D53.9 Nutritional anemia, unspecified; M48.061 Spinal stenosis, lumbar region without neurogenic claudication; Z90.49 Acquired absence of other specified parts of digestive tract; Z95.820 Peripheral vascular angioplasty status with implants and grafts; Z79.02 Long term (current) use of antithrombotics/antiplatelets; Z79.82 Long term (current) use of aspirin; Z87.891 Personal history of nicotine dependence
CPT/HCPCS: 36415; 71045; 71275; 76705; 80053; 80074; 80076; 82550; 82570; 82728; 83540; 83550; 83735; 83880; 84300; 84443; 84484; 84540; 85025; 85610; 85730; 93005; 93306; 93970; 96374; 99285; A9270; J0616; J1644; J7030; Q9967